=== PATIENT | male | born 1960 | race American Indian/Alaskan Native ===

== ENCOUNTER 2017-09-24 11:13 | Emergency (ER) | payer BC, OTHER ==
[2017-09-24 11:53] LABS: Basophils # (Auto) 0.1 K/mm3 (0.0-0.1); Basophils % (Auto) 0.7 % (0.0-1.8); Eosinophils # (Auto) 0.1 K/mm3 (0.0-0.4); Eosinophils % (Auto) 1.1 % (0.0-4.3); Hematocrit 34.4 % (35.5-45.6); Hemoglobin 11.4 gm/dl (11.8-15.2); Lymphocytes # (Auto) 2.8 K/mm3 (1.2-5.4); Lymphocytes % (Auto) 31.6 % (13.4-35.0); Mean Corpuscular HGB Conc 33 % (32-34); Mean Corpuscular Hemoglobin 24 pg (28-32); Mean Corpuscular Volume 71 fl (84-94); Monocytes % (Auto) 11.7 % (0.0-7.3); Platelet Count 347 K/mm3 (140-440); Red Blood Count 4.86 M/mm3 (3.65-5.03); Red Cell Distribution Width 18.6 % (13.2-15.2)
[2017-09-24] MEDS ORDERED: CARDIZEM/D5W 100MG/100ML 100 MG/100 ML BAG IV SCH (12:00)
[2017-09-24 12:03] LABS: INR 1.7 (0.87-1.13)
[2017-09-24 12:04] LABS: Partial Thromboplastin Time 51.9 Sec. (24.2-36.6)
[2017-09-24 12:12] LABS: Alanine Aminotransferase 9 units/L (7-56); Albumin 3.6 g/dL (3.9-5); BUN/Creatinine Ratio 28; Blood Urea Nitrogen 17 mg/dL (9-20); Calcium 8.6 mg/dL (8.4-10.2); Hemolysis Index 8
[2017-09-24] MEDS ORDERED: CARDIZEM PO ONE ×2 (12:19→13:00)
[2017-09-24 13:26] VITALS: BP 112/87
[2017-09-24 13:27] LABS: Bacteria,Urine 1+ /HPF (Negative); Bilirubin,Urine NEG (Negative); Blood,Urine NEG (Negative); Color,Urine Yellow (Yellow); Mucus,Urine FEW /HPF; Protein,Urine <15 mg/dL mg/dL (Negative)
--- NOTE | 2017-09-24 14:06 | Emergency Department Report ---
ED General Adult HPI - General Chief complaint: Arrhythmia/Palpitations Stated complaint: AFIB Time Seen by Provider: 09/24/17 11:40 Source: patient, RN notes reviewed, old records reviewed Mode of arrival: Ambulatory Limitations: No Limitations - History of Present Illness Initial comments: This is a 56-year-old male who is previously known to this provider. Past medical history includes obesity, paroxysmal atrial fibrillation, currently on systemic anticoagulation, hypothyroidism, thyroiditis, currently managed on propylthiouracil. Primary care Dr.: Dr. Elizabeth Cardiology: [facility] cardiology Patient is sent to the ER for evaluation of A. fib with RVR. He was at his primary care doctor's office for routine follow-up and was found to be incidentally in A. fib with RVR. He endorses compliance with his medications, denies shortness of breath, cough, fever, urinary symptoms. Patient also denies drug use. He had some chest discomfort with the A. fib with RVR. His tachycardia was improved with 50 mg of IV diltiazem. He is asymptomatic now at this time and has no complaints. -: Sudden Location: chest Consistency: colicky Improves with: medication Worsens with: none Associated Symptoms: chest pain. denies: confusion, cough, diaphoresis, fever/ chills, headaches, loss of appetite, malaise, nausea/vomiting, rash, seizure, shortness of breath, syncope, weakness - Related Data Home Medications Medication Instructions Recorded Confirmed Last Taken Albuterol Sulfate [Ventolin HFA] 2 puff IH QID PRN 09/24/17 09/24/17 Unknown Ferrous Fumarate [Hemocyte] 324 mg PO BID 09/24/17 09/24/17 Unknown Furosemide [Lasix TAB] 40 mg PO BID 09/24/17 09/24/17 Unknown Lisinopril [Prinivil] 5 mg PO DAILY 09/24/17 09/24/17 Unknown Methimazole [Tapazole] 10 mg PO DAILY 09/24/17 09/24/17 Unknown Metoprolol [Lopressor TAB] 100 mg PO DAILY 09/24/17 09/24/17 Unknown Potassium Chloride 20 meq PO QDAY 09/24/17 09/24/17 Unknown Rivaroxaban [Xarelto] 20 mg PO QPM 09/24/17 09/24/17 Unknown Spironolactone [Aldactone] 25 mg PO DAILY 09/24/17 09/24/17 Unknown Temazepam 30 mg PO HS PRN 09/24/17 09/24/17 Unknown Allergies Allergy/AdvReac Type Severity Reaction Status Date / Time No Known Allergies Allergy Verified 09/11/13 10:09 ED Review of Systems ROS: Stated complaint: AFIB Other details as noted in HPI Comment: All other systems reviewed and negative ED Past Medical Hx - Past Medical History Previous Medical History?: Yes Hx Hypertension: Yes Hx Congestive Heart Failure: No Hx Diabetes: Yes Hx Asthma: No Hx COPD: No Additional medical history: prostate CA - Surgical History Past Surgical History?: Yes Additional Surgical History: gastric bypass - Social History Smoking Status: Never Smoker Substance Use Type: Prescribed - Medications Home Medications: Home Medications Medication Instructions Recorded Confirmed Last Taken Type Albuterol Sulfate [Ventolin HFA] 2 puff IH QID PRN 09/24/17 09/24/17 Unknown History Ferrous Fumarate [Hemocyte] 324 mg PO BID 09/24/17 09/24/17 Unknown History Furosemide [Lasix TAB] 40 mg PO BID 09/24/17 09/24/17 Unknown History Lisinopril [Prinivil] 5 mg PO DAILY 09/24/17 09/24/17 Unknown History Methimazole [Tapazole] 10 mg PO DAILY 09/24/17 09/24/17 Unknown History Metoprolol [Lopressor TAB] 100 mg PO DAILY 09/24/17 09/24/17 Unknown History Potassium Chloride 20 meq PO QDAY 09/24/17 09/24/17 Unknown History Rivaroxaban [Xarelto] 20 mg PO QPM 09/24/17 09/24/17 Unknown History Spironolactone [Aldactone] 25 mg PO DAILY 09/24/17 09/24/17 Unknown History Temazepam 30 mg PO HS PRN 09/24/17 09/24/17 Unknown History ED Physical Exam - General Limitations: No Limitations General appearance: alert, in no apparent distress, obese - Head Head exam: Present: atraumatic, normocephalic - Eye Eye exam: Present: normal appearance, EOMI. Absent: nystagmus - ENT ENT exam: Present: normal exam, normal orophraynx, mucous membranes moist, normal external ear exam - Neck Neck exam: Present: normal inspection, full ROM - Respiratory Respiratory exam: Present: normal lung sounds bilaterally. Absent: respiratory distress - Cardiovascular Cardiovascular Exam: Present: tachycardia, irregular rhythm, normal heart sounds. Absent: systolic murmur, diastolic murmur, rubs, gallop - GI/Abdominal GI/Abdominal exam: Present: soft, normal bowel sounds. Absent: distended, tenderness, guarding, rebound, rigid, pulsatile mass - Rectal Rectal exam: Present: deferred - Extremities Exam Extremities exam: Present: normal inspection, full ROM, normal capillary refill , other. Absent: tenderness, pedal edema, joint swelling, calf tenderness ( there is no palpable cord. There is a negative Homans sign.) - Back Exam Back exam: Present: normal inspection, full ROM. Absent: tenderness, CVA tenderness (R), paraspinal tenderness, vertebral tenderness - Neurological Exam Neurological exam: Present: alert, oriented X3, CN II-XII intact, normal gait, other (Extraocular movements intact. Tongue midline. No facial droop. Facial sensation intact to light touch in the V1, V2, V3 distribution bilaterally. 5 and 5 strength in 4 extremities.. Sensation is intact to light touch in 4 extremities.). Absent: motor sensory deficit - Psychiatric Psychiatric exam: Present: normal affect, normal mood - Skin Skin exam: Present: warm, dry, intact, normal color. Absent: rash ED Course Vital Signs 09/24/17 09/24/17 09/24/17 11:24 11:31 11:45 Temperature 98.2 F Pulse Rate 148 H 145 H 153 H Respiratory 24 17 19 Rate Blood Pressure 131/86 106/59 O2 Sat by Pulse 96 97 Oximetry 09/24/17 09/24/17 12:01 13:26 Temperature Pulse Rate 152 H 87 Respiratory 16 Rate Blood Pressure 109/49 112/87 O2 Sat by Pulse 95 Oximetry - Reevaluation(s) Reevaluation #1: 09/24/17 14:30 patient now back in the 130s. His rate varies from 90 to 1:30. He is hemodynamically stable. Additional IV diltiazem is ordered. Reevaluation #2: 09/24/17 15:02 Rate is currently in the 70s. Patient in no distress. He has no complaints. Additional 50 mg of diltiazem has been infused. He wants to go. He will be discharged. Return precautions reviewed. ED Medical Decision Making - Lab Data Result diagrams: 09/24/17 11:40 09/24/17 11:40 Vital Signs 09/24/17 09/24/17 09/24/17 11:24 11:31 11:45 Temperature 98.2 F Pulse Rate 148 H 145 H 153 H Respiratory 24 17 19 Rate Blood Pressure 131/86 106/59 O2 Sat by Pulse 96 97 Oximetry 09/24/17 09/24/17 12:01 13:26 Temperature Pulse Rate 152 H 87 Respiratory 16 Rate Blood Pressure 109/49 112/87 O2 Sat by Pulse 95 Oximetry Lab Results 09/24/17 09/24/17 09/24/17 Range/Units 11:40 11:40 11:40 WBC 8.8 (4.5-11.0) K/mm3 RBC 4.86 (3.65-5.03) M/mm3 Hgb 11.4 L (11.8-15.2) gm/dl Hct 34.4 L (35.5-45.6) % MCV 71 L (84-94) fl MCH 24 L (28-32) pg MCHC 33 (32-34) % RDW 18.6 H (13.2-15.2) % Plt Count 347 (140-440) K/mm3 Lymph % (Auto) 31.6 (13.4-35.0) % Addison % (Auto) 11.7 H (0.0-7.3) % Eos % (Auto) 1.1 (0.0-4.3) % Baso % (Auto) 0.7 (0.0-1.8) % Lymph # 2.8 (1.2-5.4) K/mm3 Addison # 1.0 H (0.0-0.8) K/mm3 Eos # 0.1 (0.0-0.4) K/mm3 Baso # 0.1 (0.0-0.1) K/mm3 Seg Neutrophils % 54.9 (40.0-70.0) % Seg Neutrophils # 4.8 (1.8-7.7) K/mm3 PT 21.0 H (12.2-14.9) Sec. INR 1.70 H (0.87-1.13) APTT 51.9 H (24.2-36.6) Sec. Sodium 141 (137-145) mmol/L Potassium 3.7 (3.6-5.0) mmol/L Chloride 102.3 (98-107) mmol/L Carbon Dioxide 27 (22-30) mmol/L Anion Gap 15 mmol/L BUN 17 (9-20) mg/dL Creatinine 0.6 L (0.8-1.5) mg/dL Estimated GFR > 60 ml/min BUN/Creatinine Ratio 28 % Glucose 128 H (75-100) mg/dL Calcium 8.6 (8.4-10.2) mg/dL Total Bilirubin 0.30 (0.1-1.2) mg/dL AST 13 (5-40) units/L ALT 9 (7-56) units/L Alkaline Phosphatase 77 (35-129) units/L Troponin T < 0.010 (0.00-0.029) ng/mL Total Protein 7.6 (6.3-8.2) g/dL Albumin 3.6 L (3.9-5) g/dL Albumin/Globulin Ratio 0.9 % TSH (0.270-4.200) mlU/mL Free T4 (0.76-1.46) ng/dL Urine Color (Yellow) Urine Turbidity (Clear) Urine pH (5.0-7.0) Ur Specific [place] (1.003-1.030) Urine Protein (Negative) mg/dL Urine Glucose (UA) (Negative) mg/dL Urine Ketones (Negative) mg/dL Urine Blood (Negative) Urine Nitrite (Negative) Urine Bilirubin (Negative) Urine Urobilinogen (<2.0) mg/dL Ur Leukocyte Esterase (Negative) Urine WBC (Auto) (0.0-6.0) /HPF Urine RBC (Auto) (0.0-6.0) /HPF U Epithel Cells (Auto) (0-13.0) /HPF Urine Bacteria (Auto) (Negative) /HPF Urine Mucus /HPF 09/24/17 09/24/17 09/24/17 Range/Units 11:47 11:47 13:05 WBC (4.5-11.0) K/mm3 RBC (3.65-5.03) M/mm3 Hgb (11.8-15.2) gm/dl Hct (35.5-45.6) % MCV (84-94) fl MCH (28-32) pg MCHC (32-34) % RDW (13.2-15.2) % Plt Count (140-440) K/mm3 Lymph % (Auto) (13.4-35.0) % Addison % (Auto) (0.0-7.3) % Eos % (Auto) (0.0-4.3) % Baso % (Auto) (0.0-1.8) % Lymph # (1.2-5.4) K/mm3 Addison # (0.0-0.8) K/mm3 Eos # (0.0-0.4) K/mm3 Baso # (0.0-0.1) K/mm3 Seg Neutrophils % (40.0-70.0) % Seg Neutrophils # (1.8-7.7) K/mm3 PT (12.2-14.9) Sec. INR (0.87-1.13) APTT (24.2-36.6) Sec. Sodium (137-145) mmol/L Potassium (3.6-5.0) mmol/L Chloride (98-107) mmol/L Carbon Dioxide (22-30) mmol/L Anion Gap mmol/L BUN (9-20) mg/dL Creatinine (0.8-1.5) mg/dL Estimated GFR ml/min BUN/Creatinine Ratio % Glucose (75-100) mg/dL Calcium (8.4-10.2) mg/dL Total Bilirubin (0.1-1.2) mg/dL AST (5-40) units/L ALT (7-56) units/L Alkaline Phosphatase (35-129) units/L Troponin T (0.00-0.029) ng/mL Total Protein (6.3-8.2) g/dL Albumin (3.9-5) g/dL Albumin/Globulin Ratio % TSH 0.096 L (0.270-4.200) mlU/mL Free T4 1.19 (0.76-1.46) ng/dL Urine Color Yellow (Yellow) Urine Turbidity Clear (Clear) Urine pH 5.0 (5.0-7.0) Ur Specific [place] 1.013 (1.003-1.030) Urine Protein <15 mg/dl (Negative) mg/dL Urine Glucose (UA) Neg (Negative) mg/dL Urine Ketones Neg (Negative) mg/dL Urine Blood Neg (Negative) Urine Nitrite Neg (Negative) Urine Bilirubin Neg (Negative) Urine Urobilinogen 2.0 (<2.0) mg/dL Ur Leukocyte Esterase Neg (Negative) Urine WBC (Auto) 1.0 (0.0-6.0) /HPF Urine RBC (Auto) 2.0 (0.0-6.0) /HPF U Epithel Cells (Auto) < 1.0 (0-13.0) /HPF Urine Bacteria (Auto) 1+ (Negative) /HPF Urine Mucus Few /HPF 09/24/17 Range/Units 13:22 WBC (4.5-11.0) K/mm3 RBC (3.65-5.03) M/mm3 Hgb (11.8-15.2) gm/dl Hct (35.5-45.6) % MCV (84-94) fl MCH (28-32) pg MCHC (32-34) % RDW (13.2-15.2) % Plt Count (140-440) K/mm3 Lymph % (Auto) (13.4-35.0) % Addison % (Auto) (0.0-7.3) % Eos % (Auto) (0.0-4.3) % Baso % (Auto) (0.0-1.8) % Lymph # (1.2-5.4) K/mm3 Addison # (0.0-0.8) K/mm3 Eos # (0.0-0.4) K/mm3 Baso # (0.0-0.1) K/mm3 Seg Neutrophils % (40.0-70.0) % Seg Neutrophils # (1.8-7.7) K/mm3 PT (12.2-14.9) Sec. INR (0.87-1.13) APTT (24.2-36.6) Sec. Sodium (137-145) mmol/L Potassium (3.6-5.0) mmol/L Chloride (98-107) mmol/L Carbon Dioxide (22-30) mmol/L Anion Gap mmol/L BUN (9-20) mg/dL Creatinine (0.8-1.5) mg/dL Estimated GFR ml/min BUN/Creatinine Ratio % Glucose (75-100) mg/dL Calcium (8.4-10.2) mg/dL Total Bilirubin (0.1-1.2) mg/dL AST (5-40) units/L ALT (7-56) units/L Alkaline Phosphatase (35-129) units/L Troponin T < 0.010 (0.00-0.029) ng/mL Total Protein (6.3-8.2) g/dL Albumin (3.9-5) g/dL Albumin/Globulin Ratio % TSH (0.270-4.200) mlU/mL Free T4 (0.76-1.46) ng/dL Urine Color (Yellow) Urine Turbidity (Clear) Urine pH (5.0-7.0) Ur Specific [place] (1.003-1.030) Urine Protein (Negative) mg/dL Urine Glucose (UA) (Negative) mg/dL Urine Ketones (Negative) mg/dL Urine Blood (Negative) Urine Nitrite (Negative) Urine Bilirubin (Negative) Urine Urobilinogen (<2.0) mg/dL Ur Leukocyte Esterase (Negative) Urine WBC (Auto) (0.0-6.0) /HPF Urine RBC (Auto) (0.0-6.0) /HPF U Epithel Cells (Auto) (0-13.0) /HPF Urine Bacteria (Auto) (Negative) /HPF Urine Mucus /HPF - EKG Data -: EKG Interpreted by Me - EKG Data 09/24/17 14:07 EKG #1 demonstrates A. fib with RVR. Not consistent with a STEMI. EKG #2 demonstrates A. fib, 67 bpm, left axis deviation, right bundle branch block, left ventricular hypertrophy, it is not morphologically consistent with a STEMI - Radiology Data Radiology results: image reviewed interpreted by me: X-ray of the chest, interpreted by radiology: Portable inspiratory effort, rotated, no acute disease. - Medical Decision Making Differential diagnosis, including but not limited to: Paroxysmal A. fib, electrolyte derangement, urinary tract infection Assessment and plan: 56-year-old male, now with resolved A. fib with RVR. He is still currently in A. fib. He has no pulmonary embolus or DVT risk factors, he is low risk by well's criteria. He is compliant with his systemic anticoagulation. EKG remained unchanged after IV and oral diltiazem. He was hemodynamically stable at this time, with no complaints. I have contacted his primary bench boring machine operator, Dr. Prabhakar at [facility] cardiology, she agrees to follow the patient up closely as an outpatient. She did not specifically recommend any adjustment to his medications. He is clinically sober at this time, low risk by LUCILA score, low risk by heart score, unlikely to have major adverse cardiac event. Critical care attestation.: If time is entered above; I have spent that time in minutes in the direct care of this critically ill patient, excluding procedure time. ED Disposition Clinical Impression: Atrial fibrillation with rapid ventricular response Disposition: DC-01 TO HOME OR SELFCARE Is pt being admited?: No Does the pt Need Aspirin: No Condition: Stable Instructions: Palpitations (ED) Additional Instructions: Continue current outpatient medications. Avoid consumption of caffeine, stimulating drinks. Follow up with you bench boring machine operator within the next 7-10 days. Address: [address] [place] [id number] Hours: Open now Add full hours Return to the ER right away with new pain, worsened pain, migration of pain, fevers, chills, lethargy, irritability, projectile vomiting, change in mental status, confusion, inability to tolerate liquid feeds. Referrals: PRIMARY CARE, [Primary Care Provider] - 3-5 Days
--- NOTE | 2017-09-24 16:25 | XRay Report ---
FINAL REPORT EXAM: XR CHEST 1V AP HISTORY: shortness of breath, tachycardia, chest pain COMPARISON: None. TECHNIQUE: Single frontal view of the chest FINDINGS: The cardiomediastinal silhouette is normal in appearance. Low lung volumes. The lungs are clear without focal consolidation. There is no pleural effusion or pneumothorax. There is no acute soft tissue or osseous abnormality. IMPRESSION: No acute cardiopulmonary disease.
== END 2017-09-24 16:10 | disposition home or self-care (01) ==
LOC: ED 11:13
DX: I48.91 Unspecified atrial fibrillation (principal); I10 Essential (primary) hypertension; E11.9 Type 2 diabetes mellitus without complications
CPT/HCPCS: 36415; 71045; 80053; 81001; 84439; 84443; 84484; 85025; 85610; 85730; 93005; 93010; 99284

== ENCOUNTER 2018-08-29 06:08 | Day surgery (SDC) | payer OTHER ==
[2018-08-29] MEDS ORDERED: NACL 0.9% 1000 ML 1,000 ML IV SCH (07:00)
[2018-08-29] MEDS ORDERED: WATER FOR IRRIG STERILE ONE (07:24)
[2018-08-29] MEDS ORDERED: WATER FOR IRRIG STERILE IR ONE (07:24)
[2018-08-29] MEDS ORDERED: DIPRIVAN 10 MG/ML IV ONE ×3 (07:33)
[2018-08-29] MEDS ORDERED: XYLOCAINE 2% INFILTRATI ONE (07:33)
--- NOTE | 2018-08-29 08:13 | Operative Report ---
Operative Report Operative Report: DATE OF SERVICE: 08/29/2018 SURGEON: Grzegorz Bhandari MD COLONOSCOPY REPORT PREOPERATIVE AND POSTOPERATIVE DIAGNOSIS: Personal history colon polyps DESCRIPTION OF PROCEDURE: The colonoscope was passed to the cecum as identified by the ileocecal valve and appendiceal orifice. Scope was carefully withdrawn. Retroflexion was performed in the rectum. At the end of procedure, the scope was cleaned using normal technique. Vital signs monitored continuously throughout. SEDATION: Provided by [facility]. Quality of the prep was good COMPLICATIONS: None. ESTIMATED BLOOD LOSS: None FINDINGS: * Moderate diverticulosis of the sigmoid colon * Internal bleeding hemorrhoids * Enlarged anal papilla * External non thrombosed hemorrhoid * Small anal fissure * Remainder of the exam was normal RECOMMENDATIONS: * Repeat colonoscopy for surveillance in 5 years * Patient may either return to my clinic for treatment of the internal hemorrhoids, or if he desires definitive treatment of the external hemorrhoids he may see surgery
[2018-08-29 08:30] VITALS: BP 134/79
== END 2018-08-29 06:09 | disposition home or self-care (01) ==
LOC: GIO 06:08
PROVIDERS: ATTEND Student in an Organized Health Care Education/Training Program
DX: Z12.11 Encounter for screening for malignant neoplasm of colon (principal); K57.30 Diverticulosis of large intestine without perforation or abscess without bleeding; K64.8 Other hemorrhoids; K60.2 Anal fissure, unspecified; K62.89 Other specified diseases of anus and rectum; I48.91 Unspecified atrial fibrillation; E66.01 Morbid (severe) obesity due to excess calories; E05.90 Thyrotoxicosis, unspecified without thyrotoxic crisis or storm; G47.33 Obstructive sleep apnea (adult) (pediatric); E03.9 Hypothyroidism, unspecified; E11.39 Type 2 diabetes mellitus with other diabetic ophthalmic complication; H40.9 Unspecified glaucoma; I11.0 Hypertensive heart disease with heart failure; I50.9 Heart failure, unspecified; J45.909 Unspecified asthma, uncomplicated; Z68.41 Body mass index [BMI] 40.0-44.9, adult; Z86.010 Personal history of colon polyps; Z79.899 Other long term (current) drug therapy; Z68.42 Body mass index [BMI] 45.0-49.9, adult; Z78.9 Other specified health status; Z85.46 Personal history of malignant neoplasm of prostate; Z83.3 Family history of diabetes mellitus; Z98.890 Other specified postprocedural states; Z82.49 Family history of ischemic heart disease and other diseases of the circulatory system
CPT/HCPCS: 45378; 82962; J2704; J7030

== ENCOUNTER 2018-09-03 20:54 | Emergency (ER) | payer OTHER ==
--- NOTE | 2018-09-03 21:14 | Emergency Department Report ---
Blank Doc - Documentation Documentation: This is a 57-year-old male that presents lower back and neck pain s/p fall from a chair. Patient also stated has chest pain with SOB. History of cardiac. This initial assessment/diagnostic orders/clinical plan/treatment(s) is/are subject to change based on patient's health status, clinical progression and re- assessment by fellow clinical providers in the ED. Further treatment and workup at subsequent clinical providers discretion. Patient/guardians urged not to elope from the ED as their condition may be serious if not clinically assessed and managed. Initial orders include: 1- Patient sent to MAIN ED for further evaluation and treatment 2- EKG 3- CXR 4- labs
[2018-09-03 22:10] LABS: Hematocrit 28.8 % (35.5-45.6); Hemoglobin 9.6 gm/dl (11.8-15.2); Mean Corpuscular HGB Conc 33 % (32-34); Mean Corpuscular Volume 81 fl (84-94); Red Blood Count 3.57 M/mm3 (3.65-5.03)
[2018-09-03 22:11] LABS: Eosinophils % (Auto) 1.5 % (0.0-4.3); Monocytes % (Auto) 10.1 % (0.0-7.3); Platelet Count 352 K/mm3 (140-440); Red Cell Distribution Width 17.3 % (13.2-15.2)
[2018-09-03 22:12] LABS: Eosinophils # (Auto) 0.1 K/mm3 (0.0-0.4); Lymphocytes # (Auto) 2.7 K/mm3 (1.2-5.4); Monocytes # (Auto) 0.9 K/mm3 (0.0-0.8)
[2018-09-03 22:16] LABS: BUN/Creatinine Ratio 11; Blood Urea Nitrogen 20 mg/dL (9-20); Calcium 9.3 mg/dL (8.4-10.2); Hemolysis Index 3
[2018-09-03 22:21] LABS: INR 1.61 (0.87-1.13)
[2018-09-03 22:22] LABS: Partial Thromboplastin Time 39.5 Sec. (24.2-36.6)
--- NOTE | 2018-09-03 23:22 | XRay Report ---
PROCEDURE: XR SPINE CERVICAL 2-3V TECHNIQUE: 3 views obtained of the cervical spine HISTORY: pain s/p fall COMPARISONS: No priors FINDINGS: There is no radiographic evidence of acute cervical spine fracture or malalignment. Degenerative changes of the cervical spine with large anterior osteophytes. No prevertebral soft tissue swelling. Scoliotic curvature of the cervical spine with convexity towards the left. Open-mouth view of the odontoid within normal limits. Evaluation is limited based on the 3 views obtained. IMPRESSION: . No radiographic evidence of acute cervical spine fracture or malalignment. Degenerative changes of the cervical spine. Evaluation limited based on the 3 views obtained. This document is electronically signed by Mitchell Elaine MD., September 03 2018 11:20:53 PM ET
--- NOTE | 2018-09-03 23:23 | XRay Report ---
PROCEDURE: XR SPINE LUMBOSACRAL 2-3V TECHNIQUE: Lumbar spine 3 views HISTORY: pain s/p fall COMPARISONS: FINDINGS: Vertebral bodies are normal in height. There is grade 1 anterolisthesis of L4 relative to L5 with mar ked disc space narrowing. Appearance suggestive of bilateral spondylolysis. There is disc space narro wing at L5-S1 with vacuum disc. There is marked facet joint hypertrophy at L4-L5 and L5-S1 IMPRESSION: Grade 1 spondylolisthesis with spondylolysis at L4-L5 Marked degenerative disc disease L4-L5 and L5-S1 Facet joint hypertrophy lower lumbar spine This document is electronically signed by Roscoe Meneses MD., September 03 2018 11:21:52 PM ET
--- NOTE | 2018-09-03 23:44 | XRay Report ---
PROCEDURE: XR CHEST ROUTINE 2V TECHNIQUE: Two-view chest HISTORY: Chest Pain COMPARISONS: Comparison is September 24, 2017 FINDINGS: Cardiac contours are unremarkable. No focal pulmonary infiltrate identified. No pleural fluid collect ion seen. Pulmonary vasculature is unremarkable. IMPRESSION: No acute findings in the chest. This document is electronically signed by Roscoe Meneses MD., September 03 2018 11:42:37 PM ET
[2018-09-04 00:02] VITALS: BP 109/65
--- NOTE | 2018-09-04 00:11 | Emergency Department Report ---
ED Fall HPI - General Chief Complaint: Fall Stated Complaint: ATRIAL BACK HIP NECK LEG PAIN Time Seen by Provider: 09/03/18 21:12 Source: patient Mode of arrival: Ambulatory - History of Present Illness Initial Comments: Mr. Cheatham is a very pleasant 57-year-old male with history of thyroid disease, hypertension, diabetes, atrial fibrillation on anticoagulation Xarelto, asthma who presents with upper back pain neck pain and lower back pain due to fall. Earlier this evening, he fell at a local [employer] store. The chair broke. Consequently he fell onto his bottom and back side. His friends assisted him up. He went to a nearby urgent care which did not accept his health insurance. His health insurance referred him to our emergency department. He drove to our ED via his personal vehicle. He has mild upper back pain hip pain and lower back pain. Over the last several days he's had intermittent nondescript chest pain with shortness of breath lasting seconds at a time. Not associated with exertion or eating. No history of heart disease. PCP Dr. 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 Fall Witnessed: yes, by bystander Place Fall Occurred: other ([employer] on [address]) Loss of Consciousness: none Prolonged Down Time?: no Symptoms Prior to Fall: none Severity: mild Context: other (chair broke) - Related Data Home Medications Medication Instructions Recorded Confirmed Last Taken Albuterol Sulfate [Ventolin HFA] 2 puff IH QID PRN 09/24/17 08/28/18 Unknown Ferrous Fumarate (Nf) [Hemocyte] 324 mg PO BID 09/24/17 08/29/18 08/22/18 Furosemide [Lasix TAB] 40 mg PO BID 09/24/17 08/28/18 Unknown Lisinopril [Prinivil] 20 mg PO DAILY 09/24/17 08/28/18 08/28/18 Methimazole [Tapazole] 10 mg PO DAILY 09/24/17 08/28/18 Unknown Metoprolol [Lopressor TAB] 100 mg PO DAILY 09/24/17 08/28/18 08/28/18 Potassium Chloride 20 meq PO QDAY 09/24/17 08/28/18 08/28/18 Rivaroxaban [Xarelto] 20 mg PO QPM 09/24/17 08/29/18 08/26/18 Spironolactone [Aldactone] 25 mg PO DAILY 09/24/17 08/28/18 08/28/18 Atorvastatin 20 mg PO DAILY 08/28/18 08/28/18 08/28/18 Latanoprost 0.005% Eye Drop 1 drop OU DAILY 08/28/18 08/28/18 08/28/18 Viagra 100 mg PO PRN PRN 08/28/18 08/28/18 Unknown Victoza 2-Brandon 1.2 mg SUB-Q DAILY 08/28/18 08/28/18 08/28/18 Vitamin D2 1 tab PO DAILY 08/28/18 08/29/18 Unknown metFORMIN 1,000 mg PO BID 08/28/18 08/28/18 08/28/18 Previous Rx's Medication Instructions Recorded Last Taken Type Cyclobenzaprine [Flexeril] 10 mg PO TID PRN #20 tablet 09/04/18 Unknown Rx Allergies Allergy/AdvReac Type Severity Reaction Status Date / Time No Known Allergies Allergy Verified 09/11/13 10:09 ED Review of Systems ROS: Stated complaint: ATRIAL BACK HIP NECK LEG PAIN Other details as noted in HPI Comment: All other systems reviewed and negative Constitutional: denies: fever, malaise Cardiovascular: chest pain, dyspnea on exertion ED Past Medical Hx - Past Medical History Previous Medical History?: Yes Hx Hypertension: Yes Hx Congestive Heart Failure: Yes Hx Diabetes: Yes Hx Asthma: Yes Hx COPD: No Additional medical history: prostate CA, AFIB - Surgical History Additional Surgical History: gastric bypass, Colonoscopy - Social History Smoking Status: Unknown if ever smoked Substance Use Type: None - Medications Home Medications: Home Medications Medication Instructions Recorded Confirmed Last Taken Type Albuterol Sulfate [Ventolin HFA] 2 puff IH QID PRN 09/24/17 08/28/18 Unknown History Ferrous Fumarate (Nf) [Hemocyte] 324 mg PO BID 09/24/17 08/29/18 08/22/18 History Furosemide [Lasix TAB] 40 mg PO BID 09/24/17 08/28/18 Unknown History Lisinopril [Prinivil] 20 mg PO DAILY 09/24/17 08/28/18 08/28/18 History Methimazole [Tapazole] 10 mg PO DAILY 09/24/17 08/28/18 Unknown History Metoprolol [Lopressor TAB] 100 mg PO DAILY 09/24/17 08/28/18 08/28/18 History Potassium Chloride 20 meq PO QDAY 09/24/17 08/28/18 08/28/18 History Rivaroxaban [Xarelto] 20 mg PO QPM 09/24/17 08/29/18 08/26/18 History Spironolactone [Aldactone] 25 mg PO DAILY 09/24/17 08/28/18 08/28/18 History Atorvastatin 20 mg PO DAILY 08/28/18 08/28/18 08/28/18 History Latanoprost 0.005% Eye Drop 1 drop OU DAILY 08/28/18 08/28/18 08/28/18 History Viagra 100 mg PO PRN PRN 08/28/18 08/28/18 Unknown History Victoza 2-Brandon 1.2 mg SUB-Q DAILY 08/28/18 08/28/18 08/28/18 History Vitamin D2 1 tab PO DAILY 08/28/18 08/29/18 Unknown History metFORMIN 1,000 mg PO BID 08/28/18 08/28/18 08/28/18 History Cyclobenzaprine [Flexeril] 10 mg PO TID PRN #20 tablet 09/04/18 Unknown Rx ED Physical Exam - General Limitations: No Limitations General appearance: alert, in no apparent distress - Head Head exam: Present: atraumatic, normocephalic - Eye Eye exam: Present: normal appearance - ENT ENT exam: Present: mucous membranes moist - Neck Neck exam: Present: normal inspection, full ROM - Respiratory Respiratory exam: Present: normal lung sounds bilaterally. Absent: respiratory distress, wheezes, rales, rhonchi - Cardiovascular Cardiovascular Exam: Present: regular rate, normal rhythm, normal heart sounds. Absent: systolic murmur, diastolic murmur, rubs, gallop - GI/Abdominal GI/Abdominal exam: Present: soft, normal bowel sounds. Absent: distended, tenderness, guarding, rebound - Rectal Rectal exam: Present: deferred - Extremities Exam Extremities exam: Present: normal inspection - Back Exam Back exam: Present: normal inspection - Neurological Exam Neurological exam: Present: alert, oriented X3 - Psychiatric Psychiatric exam: Present: normal affect, normal mood - Skin Skin exam: Present: warm, dry, intact, normal color. Absent: rash ED Course Vital Signs 09/03/18 09/04/18 21:13 00:00 Temperature 98 F 99 F Pulse Rate 82 73 Respiratory 20 18 Rate Blood Pressure 91/58 Blood Pressure 109/65 [Right] O2 Sat by Pulse 98 100 Oximetry ED Medical Decision Making - Lab Data Result diagrams: 09/03/18 21:52 09/03/18 21:52 Laboratory Tests 09/03/18 09/03/18 09/03/18 21:52 21:52 21:52 WBC 8.6 RBC 3.57 L Hgb 9.6 L Hct 28.8 L MCV 81 L MCH 27 L MCHC 33 RDW 17.3 H Plt Count 352 Lymph % (Auto) 31.0 [place] % (Auto) 10.1 H Eos % (Auto) 1.5 Baso % (Auto) 0.0 Lymph # 2.7 [place] # 0.9 H Eos # 0.1 Baso # 0.0 Seg Neutrophils % 57.4 Seg Neutrophils # 4.9 PT 20.2 H INR 1.61 H APTT 39.5 H Sodium 141 Potassium 4.4 Chloride 105.7 Carbon Dioxide 23 Anion Gap 17 BUN 20 Creatinine 1.8 H Estimated GFR 47 BUN/Creatinine Ratio 11 Glucose 98 Calcium 9.3 Troponin T < 0.010 - Radiology Data Radiology results: report reviewed Radiology reports reveal marked degenerative disc disease in the lumbar spine, no acute fracture, Cervical spine radiographs no acute fracture positive degenerative changes Chest radiograph without acute changes - Medical Decision Making 1. fall without severe traumatic injury, neurologically intact, referred to orthopedic surgeon, rx: flexeril 2. elevated creatinine 1.8 on diuretic therapy. I provided copy of lab work to patient. He will f/u with PCP Dr. Penaloza Critical care attestation.: If time is entered above; I have spent that time in minutes in the direct care of this critically ill patient, excluding procedure time. ED Disposition Clinical Impression: Fall, Back contusion, Contusion, hip Disposition: DC-01 TO HOME OR SELFCARE Is pt being admited?: No Does the pt Need Aspirin: No Condition: Stable Instructions: Contusion in Adults (ED) Prescriptions: Cyclobenzaprine [Flexeril] 10 mg PO TID PRN #20 tablet PRN Reason: Muscle Spasm Referrals: RICK PENALOZA MD [Primary Care Provider] - 3-5 Days TOBY RICO MD [Staff Physician] - 3-5 Days
== END 2018-09-04 00:33 | disposition home or self-care (01) ==
LOC: ED 20:54
DX: S20.229A Contusion of unspecified back wall of thorax, initial encounter (principal); S70.00XA Contusion of unspecified hip, initial encounter; I11.0 Hypertensive heart disease with heart failure; I50.9 Heart failure, unspecified; E11.9 Type 2 diabetes mellitus without complications; J45.909 Unspecified asthma, uncomplicated; I48.91 Unspecified atrial fibrillation; Z79.899 Other long term (current) drug therapy; W18.30XA Fall on same level, unspecified, initial encounter; Y93.89 Activity, other specified; Y92.512 Supermarket, store or market as the place of occurrence of the external cause; Y99.8 Other external cause status
CPT/HCPCS: 36415; 71046; 72040; 72100; 80048; 84484; 85025; 85610; 85730; 93005; 93010

== ENCOUNTER 2019-04-07 21:51 | Inpatient (IN) | payer OTHER ==
[2019-04-07] MEDS ORDERED: dilTIAZem 25 MG/5 ML INJ IV ONE ×2 (22:57→23:27)
[2019-04-07 23:08] LABS: Basophils % (Auto) 0.5 % (0.0-1.8); Eosinophils # (Auto) 0.1 K/mm3 (0.0-0.4); Eosinophils % (Auto) 0.8 % (0.0-4.3); Hematocrit 29.6 % (35.5-45.6); Hemoglobin 9.7 gm/dl (11.8-15.2); Lymphocytes # (Auto) 2.2 K/mm3 (1.2-5.4); Lymphocytes % (Auto) 26.8 % (13.4-35.0); Mean Corpuscular HGB Conc 33 % (32-34); Monocytes % (Auto) 11.6 % (0.0-7.3); Platelet Count 332 K/mm3 (140-440); Red Blood Count 4.36 M/mm3 (3.65-5.03); Red Cell Distribution Width 18.8 % (13.2-15.2)
--- NOTE | 2019-04-07 23:09 | XRay Report ---
CHEST 1 VIEW INDICATION: CP. COMPARISON: 09/24/2017. FINDINGS: Support devices: None. Heart: Within normal limits. Lungs/Pleura: No acute air space or interstitial disease. Additional findings: None. IMPRESSION: No acute abnormality. Signer Name: Rafael Shen MD Signed: 04/07/2019 11:04 PM Workstation Name: [id number]
[2019-04-07 23:18] LABS: INR 1.86 (0.87-1.13)
[2019-04-07 23:19] LABS: Partial Thromboplastin Time 41.7 Sec. (24.2-36.6)
[2019-04-07 23:26] LABS: Mean Corpuscular Volume 68 fl (84-94)
[2019-04-07 23:33] LABS: BUN/Creatinine Ratio 24; Blood Urea Nitrogen 26 mg/dL (9-20); Calcium 8.8 mg/dL (8.4-10.2); Hemolysis Index 3
[2019-04-07] MEDS ORDERED: dilTIAZem/D5W 100 MG/100 ML BAG IV SCH (23:45)
[2019-04-08] MEDS ORDERED: ONDANSETRON 4 MG/2 ML INJ IV PRN (00:33)
[2019-04-08] MEDS ORDERED: ACETAMINOPHEN 325 MG TAB PO PRN (00:33)
[2019-04-08] MEDS ORDERED: DEXTROSE 50% IN WATER (25GM) 50 ML SYRINGE IV PRN (00:37)
--- NOTE | 2019-04-08 00:37 | Emergency Department Report ---
ED Chest Pain HPI - General Chief Complaint: Arrhythmia/Palpitations Stated Complaint: ATRIAL FIB Time Seen by Provider: 04/07/19 22:24 Source: patient Mode of arrival: Ambulatory Limitations: No Limitations - History of Present Illness Initial Comments: 58-year-old [place] male presents to the emergency department with complaint of some shortness of breath, palpitations and chest tightness that worsens with any exertion that has been going on since yesterday. He has a past medical history of asthma, CHF, diabetes, hypertension, paroxysmal A. fib, previous prostate cancer and hyperthyroidism. Patient says his primary care physician recently stopped his methimazole. He sees a pipe assembly worker through [facility]. He has not taken anything for her symptoms prior to presentation. The patient is anticoagulated on Xarelto. No recent travel or sick contacts at home. Severity scale (0 -10): 0 - Related Data Home Medications Medication Instructions Recorded Confirmed Last Taken Lisinopril [Prinivil] 20 mg PO DAILY 09/24/17 04/08/19 08/28/18 Rivaroxaban [Xarelto] 20 mg PO QPM 09/24/17 04/08/19 08/26/18 Spironolactone [Aldactone] 25 mg PO DAILY 09/24/17 04/08/19 08/28/18 Atorvastatin 20 mg PO DAILY 08/28/18 04/08/19 08/28/18 Victoza 2-Brandon 1.2 mg SUB-Q DAILY 08/28/18 04/08/19 08/28/18 Cholecalciferol Vit D3 [Vitamin D3 1,000 unit PO QDAY 04/08/19 04/08/19 Unknown 1,000 UNIT TAB] Furosemide [Lasix TAB] 40 mg PO QDAY 04/08/19 04/08/19 Unknown Metformin HCl [metFORMIN] 1,000 mg PO QDAY 04/08/19 04/08/19 Unknown Methimazole [Tapazole] 10 mg PO QDAY 04/08/19 04/08/19 Unknown Metoprolol [Lopressor TAB] 50 mg PO QDAY 04/08/19 04/08/19 Unknown Potassium Chloride 10 meq PO QDAY 04/08/19 04/08/19 Unknown Allergies Allergy/AdvReac Type Severity Reaction Status Date / Time No Known Allergies Allergy Verified 09/11/13 10:09 Heart Score - HEART Score History: Slightly suspicious EKG: Non-specific Age: 45-65 Risk factors: 1-2 risk factors Troponin: < normal limit HEART Score: 3 - Critical Actions Critical Actions: 0-3 pts:0.9-1.7%risk of adverse cardiac event.Candidate for discharge ED Review of Systems ROS: Stated complaint: ATRIAL FIB Other details as noted in HPI Comment: All other systems reviewed and negative Constitutional: denies: chills, fever Eyes: denies: eye pain, vision change ENT: denies: ear pain, throat pain Respiratory: shortness of breath, SOB with exertion. denies: cough Cardiovascular: chest pain, palpitations. denies: edema Gastrointestinal: denies: abdominal pain, vomiting Genitourinary: denies: dysuria, discharge Musculoskeletal: denies: back pain, arthralgia Skin: denies: rash, lesions Neurological: denies: headache, weakness ED Past Medical Hx - Past Medical History Previous Medical History?: Yes Hx Hypertension: Yes Hx Congestive Heart Failure: Yes Hx Diabetes: Yes Hx Asthma: Yes Hx COPD: No Additional medical history: prostate CA, AFIB - Surgical History Additional Surgical History: gastric bypass, Colonoscopy - Social History Smoking Status: Never Smoker Substance Use Type: None - Medications Home Medications: Home Medications Medication Instructions Recorded Confirmed Last Taken Type Lisinopril [Prinivil] 20 mg PO DAILY 09/24/17 04/08/19 08/28/18 History Rivaroxaban [Xarelto] 20 mg PO QPM 09/24/17 04/08/19 08/26/18 History Spironolactone [Aldactone] 25 mg PO DAILY 09/24/17 04/08/19 08/28/18 History Atorvastatin 20 mg PO DAILY 08/28/18 04/08/19 08/28/18 History Victoza 2-Brandon 1.2 mg SUB-Q DAILY 08/28/18 04/08/19 08/28/18 History Cholecalciferol Vit D3 [Vitamin D3 1,000 unit PO QDAY 04/08/19 04/08/19 Unknown History 1,000 UNIT TAB] Furosemide [Lasix TAB] 40 mg PO QDAY 04/08/19 04/08/19 Unknown History Metformin HCl [metFORMIN] 1,000 mg PO QDAY 04/08/19 04/08/19 Unknown History Methimazole [Tapazole] 10 mg PO QDAY 04/08/19 04/08/19 Unknown History Metoprolol [Lopressor TAB] 50 mg PO QDAY 04/08/19 04/08/19 Unknown History Potassium Chloride 10 meq PO QDAY 04/08/19 04/08/19 Unknown History ED Physical Exam - General Limitations: No Limitations - Other Other exam information: GENERAL: The patient is well-developed well-nourished. HENT: Normocephalic. Atraumatic. Patient has moist mucous membranes. EYES: Extraocular motions are intact. NECK: Supple. Trachea is midline. CHEST/LUNGS: Clear to auscultation. There is no respiratory distress noted. HEART/CARDIOVASCULAR: Regular rhythm with moderate tachycardia. ABDOMEN: Abdomen is soft, nontender. Patient has normal bowel sounds. There is no abdominal distention. SKIN: Skin is warm and dry. NEURO: The patient is awake, alert, and oriented. The patient is cooperative. The patient has no focal neurologic deficits. Normal speech. MUSCULOSKELETAL: There is no tenderness or deformity. There is no evidence of acute injury. ED Course Vital Signs 04/07/19 04/07/19 04/07/19 21:58 22:30 23:10 Temperature 98.6 F Pulse Rate 62 172 H 152 H Respiratory 18 17 Rate Blood Pressure 113/72 107/75 Blood Pressure 107/75 [Left] O2 Sat by Pulse 97 99 Oximetry 04/07/19 04/07/19 04/07/19 23:16 23:30 23:45 Temperature Pulse Rate 129 H 128 H 135 H Respiratory 22 22 21 Rate Blood Pressure 107/60 107/60 107/65 Blood Pressure [Left] O2 Sat by Pulse 100 100 100 Oximetry 04/07/19 04/07/19 04/08/19 23:51 23:57 00:00 Temperature Pulse Rate 138 H 132 H 112 H Respiratory 19 Rate Blood Pressure 107/65 107/65 107/65 Blood Pressure [Left] O2 Sat by Pulse 99 Oximetry 04/08/19 04/08/19 04/08/19 00:15 00:30 00:45 Temperature Pulse Rate 118 H 128 H 136 H Respiratory 20 18 19 Rate Blood Pressure 98/51 98/51 Blood Pressure 128/64 [Left] O2 Sat by Pulse 99 99 99 Oximetry 04/08/19 04/08/19 04/08/19 01:00 01:16 01:18 Temperature Pulse Rate 150 H 137 H 133 H Respiratory 26 H 17 17 Rate Blood Pressure 103/64 100/70 Blood Pressure 121/69 [Left] O2 Sat by Pulse 96 97 99 Oximetry 04/08/19 04/08/19 04/08/19 01:31 01:46 02:05 Temperature Pulse Rate 134 H 129 H 135 H Respiratory 17 17 17 Rate Blood Pressure 99/78 Blood Pressure 113/68 123/75 [Left] O2 Sat by Pulse 99 100 100 Oximetry LUCILA score - Lucila Score Age > 65: (0) No Aspirin use within the Past 7 Days: (0) No 3 or more CAD Risk Factors: (0) No 2 or more Angina events in past 24 hrs: (1) Yes Known CAD with more than 50% Stenosis: (0) No Elevated Cardiac Markers: (0) No ST Deviation Greater than 0.5mm: (1) Yes LUCILA Score: 2 ED Medical Decision Making - Lab Data Result diagrams: 04/07/19 22:51 04/07/19 22:51 - EKG Data -: EKG Interpreted by Me - EKG Data When compared to previous EKG there are: previous EKG unavailable Interpretation: other (A. fib with RVR, rate of 141 bpm, right bundle branch block, left anterior fascicular block) - Radiology Data Radiology results: image reviewed interpreted by me: Chest x-ray does not show any acute process. There are no pleural effusions, obvious pneumonia and there is no pneumothorax. - Medical Decision Making This patient presents with a one-day history of chest pain, shortness of breath, palpitations. He has history of paroxysmal A. fib and is currently in A. fib with RVR. Patient's labs are mostly unremarkable except for a TSH that is basically 0. Patient has a history of hyperthyroidism and was previously stopped on his methimazole. I have ordered a free T4 but I suspect h yperthyroidism may be playing a role in this patient's return to atrial fibrillation with RVR. He was given a IV dose of Cardizem with some improvement but not enough to provide rate control. The patient was placed on a Cardizem drip and will be admitted to the ICU. He was accepted for admission by the hospitalist, Dr. Reich. - Differential Diagnosis IA, pneumonia, hyperthyroidism, dysrhythmia Critical Care Time: Yes Critical care time in (mins) excluding proc time.: 31 Critical care attestation.: If time is entered above; I have spent that time in minutes in the direct care of this critically ill patient, excluding procedure time. Critical care time was spent on this patient and doing his initial evaluation, multiple re-evaluations, ordering and interpretation of labs and imaging, o rdering and titration of the Cardizem drip for his A. fib with RVR and multiple conversations with the patient. Critical Care Time: 31 minutes ED Disposition Clinical Impression: Atrial fibrillation with rapid ventricular response, Hyperthyroidism, Acute chest pain Disposition: OP ADMIT IP TO THIS HOSP Is pt being admited?: Yes Condition: Serious Time of Disposition: 02:32
[2019-04-08] MEDS ORDERED: NITROGLYCERIN 0.4 MG TAB SUBL SL PRN (00:44)
[2019-04-08] MEDS ORDERED: TEMAZEPAM 15 MG CAP PO ONE (01:17)
[2019-04-08] MEDS ORDERED: ALBUTEROL 2.5 MG/3 ML NEBU IH PRN (01:31)
[2019-04-08 01:51] LABS: Creatine Kinase MB 1.8 ng/mL (0.0-4.0)
--- NOTE | 2019-04-08 02:07 | History and Physical Report ---
<ROSA MARIA GARCIA - Last Filed: 04/08/19 02:16> History of Present Illness Date of examination: 04/08/19 Date of admission: 04/08/2019 Chief complaint: Chest Pain, palpitation History of present illness: 58-year-old -[place] male with history of obesity, atrial fibrillation anticoagulated on Xarelto, dilated cardiomyopathy with EF 30-35%, hypertension hypothyroidism, diabetes, prostate cancer and asthma presents to the [facility] ED w ith complaints of shortness of breath, palpitations and chest tightness x1 day. Pt states that he feels like is heart is racing. He also complains of chest tightness and shortness of breath with activity. His chest tightness and SOB improves with rest, but his heart continues to race. Pt was previously on methimazole, and states that his physician recently discontinued the med. He admits to being compliant with all meds. He denies any recent hospitalizations, nausea, vomiting or diaphoresis. Past History Past Medical History: atrial fib, diabetes, heart failure, hypertension, hypothyroidism, other (asthma, prostate cancer, KIRAN) Past Surgical History: Other (gastric bypass, Colonoscopy) Social history: Lives alone Family history: no significant family history Medications and Allergies Allergies Allergy/AdvReac Type Severity Reaction Status Date / Time No Known Allergies Allergy Verified 09/11/13 10:09 Home Medications Medication Instructions Recorded Confirmed Last Taken Type Lisinopril [Prinivil] 20 mg PO DAILY 09/24/17 04/08/19 08/28/18 History Temazepam [Restoril] 30 mg PO QHS PRN 04/08/19 04/08/19 1 Day Ago History ~04/07/19 AtorvaSTATin [Lipitor] 20 mg PO DAILY #30 tablet 04/10/19 Unknown Rx Cholecalciferol Vit D3 [Vitamin D3 1,000 unit PO QDAY #30 04/10/19 Unknown Rx 1,000 UNIT TAB] Furosemide [Lasix TAB] 40 mg PO QDAY #30 04/10/19 Unknown Rx Methimazole [Tapazole] 10 mg PO QDAY #30 04/10/19 Unknown Rx Metoprolol [Lopressor TAB] 50 mg PO QDAY #60 04/10/19 Unknown Rx Rivaroxaban [Xarelto] 20 mg PO QPM #30 tablet 04/10/19 Unknown Rx Spironolactone [Aldactone] 25 mg PO DAILY #30 tablet 04/10/19 Unknown Rx Temazepam [Restoril] 30 mg PO QHS PRN capsule 04/10/19 Unknown Rx Victoza 2-Brandon 1.2 mg SUB-Q DAILY #1 packet 04/10/19 Unknown Rx metFORMIN [Glucophage] 1,000 mg PO QAMDIAB #60 tablet 04/10/19 Unknown Rx methIMAzole [Tapazole] 10 mg PO Q24HR tablet 04/10/19 Unknown Rx Active Meds: Active Medications Acetaminophen (Tylenol) 650 mg PO Q4H PRN PRN Reason: Pain MILD(1-3)/Fever >100.5/[place] Albuterol (Proventil) 2.5 mg IH Q4HRT PRN PRN Reason: Shortness Of Breath Atorvastatin Calcium (Lipitor) 20 mg PO DAILY [facility] Cholecalciferol (Vitamin D3) 1,000 unit PO QDAY [facility] Dextrose (D50w (25gm) Syringe) 0 ml IV Q30MIN PRN; Protocol PRN Reason: Hypoglycemia Furosemide (Lasix) 40 mg PO QDAY [facility] Diltiazem HCl (Cardizem/D5w 100mg/100ml) 100 mg in 100 mls @ 5 mls/hr IV TITR ASHLEY; Protocol Last Titration: 04/08/19 00:50 Dose: 7.5 mg/hr, 7.5 mls/hr Documented by: Insulin Human Lispro (Humalog) 0 unit SUB-Q ACHS A[facility]; Protocol Metformin HCl (Glucophage) 1,000 mg PO QAMDIAB [facility] Nitroglycerin (Nitrostat) 0.4 mg SL .Q5MIN PRN PRN Reason: Chest Pain Ondansetron HCl (Zofran) 4 mg IV Q8H PRN PRN Reason: Nausea And Vomiting Potassium Chloride (K-Dur) 10 meq PO QDAY [facility] Rivaroxaban (Xarelto) 20 mg PO QPM A[facility]; Protocol Sodium Chloride (Sodium Chloride Flush Syringe 10 Ml) 10 ml IV BID [facility] Sodium Chloride (Sodium Chloride Flush Syringe 10 Ml) 10 ml IV PRN PRN PRN Reason: LINE FLUSH Spironolactone (Aldactone) 25 mg PO DAILY [facility] Review of Systems All systems: negative Cardiovascular: palpitations, shortness of breath, dyspnea on exertion, other (chest tightness) Exam - Physical Exam Narrative exam: Physical exam General appearance: Present: No acute distress, alert and oriented 3, well developed, pleasant, Dutch - EENT Eyes: Present: PERRL, EOM intact ENT: hearing intact, normal dentition - Neck Neck: Present: supple, normal ROM - Respiratory Respiratory effort: Non-labored Respiratory: Clear throughout - Cardiovascular Heart rate: 141 (bpm) Rhythm: A. fib with RVR Heart Sounds: Present: S1 & S2. Absent: rub, click - Extremities Extremities: no ischemia, pulses intact, - Peripheral Assessment Peripheral Pulses: within normal limits - Abdominal General gastrointestinal: soft, non-tender, normal bowel sounds - Integumentary Integumentary: Present: warm, dry - Musculoskeletal Musculoskeletal: Able to move all extremities -Neurological Neurological: CN II-XII intact - Psychiatric Psychiatric: Appropriate for situation ,cooperative - Constitutional Vitals: Temp Pulse Resp BP Pulse Ox 98.6 F 129 H 17 99/78 100 04/07/19 21:58 04/08/19 01:46 04/08/19 01:46 04/08/19 01:46 04/08/19 01:46 Results - Labs CBC & Chem 7: 04/07/19 22:51 04/07/19 22:51 Labs: Laboratory Last Values WBC 8.3 K/mm3 (4.5-11.0) 04/07/19 22:51 RBC 4.36 M/mm3 (3.65-5.03) 04/07/19 22:51 Hgb 9.7 gm/dl (11.8-15.2) L 04/07/19 22:51 Hct 29.6 % (35.5-45.6) L 04/07/19 22:51 MCV 68 fl (84-94) L 04/07/19 22:51 MCH 22 pg (28-32) L 04/07/19 22:51 MCHC 33 % (32-34) 04/07/19 22:51 RDW 18.8 % (13.2-15.2) H 04/07/19 22:51 Plt Count 332 K/mm3 (140-440) 04/07/19 22:51 Lymph % (Auto) 26.8 % (13.4-35.0) 04/07/19 22:51 Rowan % (Auto) 11.6 % (0.0-7.3) H 04/07/19 22:51 Eos % (Auto) 0.8 % (0.0-4.3) 04/07/19 22:51 Baso % (Auto) 0.5 % (0.0-1.8) 04/07/19 22:51 Lymph # 2.2 K/mm3 (1.2-5.4) 04/07/19 22:51 Rowan # 1.0 K/mm3 (0.0-0.8) H 04/07/19 22:51 Eos # 0.1 K/mm3 (0.0-0.4) 04/07/19 22:51 Baso # 0.0 K/mm3 (0.0-0.1) 04/07/19 22:51 Seg Neutrophils % 60.3 % (40.0-70.0) 04/07/19 22:51 Seg Neutrophils # 5.0 K/mm3 (1.8-7.7) 04/07/19 22:51 PT 21.1 Sec. (12.2-14.9) H 04/07/19 22:51 INR 1.86 (0.87-1.13) H 04/07/19 22:51 APTT 41.7 Sec. (24.2-36.6) H 04/07/19 22:51 Sodium 140 mmol/L (137-145) 04/07/19 22:51 Potassium 4.2 mmol/L (3.6-5.0) 04/07/19 22:51 Chloride 103.0 mmol/L (98-107) 04/07/19 22:51 Carbon Dioxide 24 mmol/L (22-30) 04/07/19 22:51 Anion Gap 17 mmol/L 04/07/19 22:51 BUN 26 mg/dL (9-20) H 04/07/19 22:51 Creatinine 1.1 mg/dL (0.8-1.5) 04/07/19 22:51 Estimated GFR > 60 ml/min 04/07/19 22:51 BUN/Creatinine Ratio 24 % 04/07/19 22:51 Glucose 135 mg/dL (75-100) H 04/07/19 22:51 Calcium 8.8 mg/dL (8.4-10.2) 04/07/19 22:51 Total Creatine Kinase 145 units/L (55-170) 04/08/19 01:24 CK-MB (CK-2) 1.8 ng/mL (0.0-4.0) 04/08/19 01:24 CK-MB (CK-2) Rel Index 1.2 (0-4) 04/08/19 01:24 Troponin T < 0.010 ng/mL (0.00-0.029) 04/08/19 01:24 - Imaging and Cardiology Imaging and Cardiology: CXR: FINDINGS: Support devices: None. Heart: Within normal limits. Lungs/Pleura: No acute air space or interstitial disease. Additional findings: None. IMPRESSION: No acute abnormality. Assessment and Plan Assessment and plan: 58-year-old -Dutch male with history of obesity, atrial fibrillation anticoagulated on Xarelto, dilated cardiomyopathy with EF 30-35%, hypertension hypothyroidism, diabetes, prostate cancer and asthma presents to the [facility] ED wi th complaints of shortness of breath, palpitations and chest tightness x1 day. Pt states that he feels like is heart is racing. He also complains of chest tightness and shortness of breath with activity. His chest tightness and SOB improves with rest, but his heart continues to race. Pt was previously on methimazole, and states that his physician recently discontinued the med. He admits to being compliant with all meds. He denies any recent hospitalizations, nausea, vomiting or diaphoresis. Atrial fibrillation with RVR -Today's EKG shows AFib RVR -History of A. fib -Anticoagulated on Xarelto -Previously rate control on BB -Currently on Cardizem gtt; titrate prn -Cardiology Consulted Acute Chest Pain -Initiate chest pain protocol -Continuous telemetry monitoring -Continue supportive care -Pain mgmt -Troponin negative x1 , will continue to trend -EKG unrevealing for acute ischemic abnormalities -Cardiology consulted Anemia -Hemoglobin on admission 9.7 -No s/s of active bleeding -Continue to monitor hemoglobin -Transfuse as needed Obesity -BMI 47.0kg -Diet and lifestyle modifications -May benefit from OP weight mgmt program Hx CHF -Dilated cardiomyopathy -EF 3035% seen on echo done 10/17/15 -Continue heart failure meds Hx Asthma -Albuterol prn Hx KIRAN -Continue nocturnal CPAP use DVT PPX -on Xarelto VTE prophylaxis?: Chemical Plan of care discussed with patient/family: Yes <NIKKI CAICEDO Lukas - Last Filed: 04/11/19 05:22> History of Present Illness Date of admission: 04/08/19 00:33 Medications and Allergies Active Meds: Active Medications Acetaminophen (Tylenol) 650 mg PO Q4H PRN PRN Reason: Pain MILD(1-3)/Fever >100.5/[place] Albuterol (Proventil) 2.5 mg IH Q4HRT PRN PRN Reason: Shortness Of Breath Atorvastatin Calcium (Lipitor) 20 mg PO DAILY [facility] Cholecalciferol (Vitamin D3) 1,000 unit PO QDAY [facility] Dextrose (D50w (25gm) Syringe) 0 ml IV Q30MIN PRN; Protocol PRN Reason: Hypoglycemia Furosemide (Lasix) 40 mg PO QDAY [facility] Amiodarone HCl 900 mg/ (Dextrose) 500 mls @ 33.333 mls/hr IV DIRECT ASHLEY; Protocol Insulin Human Lispro (Humalog) 0 unit SUB-Q ACHS ASHLEY; Protocol Metformin HCl (Glucophage) 1,000 mg PO QAMDIAB [facility] Nitroglycerin (Nitrostat) 0.4 mg SL .Q5MIN PRN PRN Reason: Chest Pain Last Admin: 04/08/19 03:29 Dose: 0.4 mg Documented by: Ondansetron HCl (Zofran) 4 mg IV Q8H PRN PRN Reason: Nausea And Vomiting Potassium Chloride (K-Dur) 10 meq PO QDAY [facility] Rivaroxaban (Xarelto) 20 mg PO QPM [facility]SHLEY; Protocol Sodium Chloride (Sodium Chloride Flush Syringe 10 Ml) 10 ml IV BID [facility] Sodium Chloride (Sodium Chloride Flush Syringe 10 Ml) 10 ml IV PRN PRN PRN Reason: LINE FLUSH Spironolactone (Aldactone) 25 mg PO DAILY [facility] Exam - Constitutional Vitals: Temp Pulse Resp BP Pulse Ox 98.6 F 132 H 17 105/61 100 04/07/19 21:58 04/08/19 03:29 04/08/19 02:05 04/08/19 03:29 04/08/19 02:05 Results - Labs CBC & Chem 7: 04/09/19 04:50 04/09/19 04:50 Labs: Laboratory Last Values WBC 8.3 K/mm3 (4.5-11.0) 04/07/19 22:51 RBC 4.36 M/mm3 (3.65-5.03) 04/07/19 22:51 Hgb 9.7 gm/dl (11.8-15.2) L 04/07/19 22:51 Hct 29.6 % (35.5-45.6) L 04/07/19 22:51 MCV 68 fl (84-94) L 04/07/19 22:51 MCH 22 pg (28-32) L 04/07/19 22:51 MCHC 33 % (32-34) 04/07/19 22:51 RDW 18.8 % (13.2-15.2) H 04/07/19 22:51 Plt Count 332 K/mm3 (140-440) 04/07/19 22:51 Lymph % (Auto) 26.8 % (13.4-35.0) 04/07/19 22:51 Rowan % (Auto) 11.6 % (0.0-7.3) H 04/07/19 22:51 Eos % (Auto) 0.8 % (0.0-4.3) 04/07/19 22:51 Baso % (Auto) 0.5 % (0.0-1.8) 04/07/19 22:51 Lymph # 2.2 K/mm3 (1.2-5.4) 04/07/19 22:51 Rowan # 1.0 K/mm3 (0.0-0.8) H 04/07/19 22:51 Eos # 0.1 K/mm3 (0.0-0.4) 04/07/19 22:51 Baso # 0.0 K/mm3 (0.0-0.1) 04/07/19 22:51 Seg Neutrophils % 60.3 % (40.0-70.0) 04/07/19 22:51 Seg Neutrophils # 5.0 K/mm3 (1.8-7.7) 04/07/19 22:51 PT 21.1 Sec. (12.2-14.9) H 04/07/19 22:51 INR 1.86 (0.87-1.13) H 04/07/19 22:51 APTT 41.7 Sec. (24.2-36.6) H 04/07/19 22:51 Sodium 140 mmol/L (137-145) 04/07/19 22:51 Potassium 4.2 mmol/L (3.6-5.0) 04/07/19 22:51 Chloride 103.0 mmol/L (98-107) 04/07/19 22:51 Carbon Dioxide 24 mmol/L (22-30) 04/07/19 22:51 Anion Gap 17 mmol/L 04/07/19 22:51 BUN 26 mg/dL (9-20) H 04/07/19 22:51 Creatinine 1.1 mg/dL (0.8-1.5) 04/07/19 22:51 Estimated GFR > 60 ml/min 04/07/19 22:51 BUN/Creatinine Ratio 24 % 04/07/19 22:51 Glucose 135 mg/dL (75-100) H 04/07/19 22:51 Hemoglobin A1c 6.5 % (4-6) H 04/08/19 01:24 Calcium 8.8 mg/dL (8.4-10.2) 04/07/19 22:51 Total Creatine Kinase 145 units/L (55-170) 04/08/19 01:24 CK-MB (CK-2) 1.8 ng/mL (0.0-4.0) 04/08/19 01:24 CK-MB (CK-2) Rel Index 1.2 (0-4) 04/08/19 01:24 Troponin T < 0.010 ng/mL (0.00-0.029) 04/08/19 01:24 TSH < 0.005 mlU/mL (0.270-4.200) L 04/08/19 01:24 Assessment and Plan Assessment and plan: 58-year-old woman with a history of hypertension, diabetes, CHF, hypothyroidism, A. fib comes emergency room with complaints of palpitation, chest pain in the left substernal area at this started yesterday. He stated that he's been compliant with medication. The patient was started on Cardizem drip in the emergency room, all of her is heart rate is been uncontrolled, DC Cardizem drip, start amiodarone drip, check cardiac enzymes, TSH. Patient had a stress test on year ago, cardiology to see. Restart tapazole, patient non compliant with this medication
[2019-04-08] MEDS ORDERED: NITROGLYCERIN 0.4 MG TAB SUBL SL ONE (03:26)
[2019-04-08] MEDS: methIMAzole 5 MG TAB PO SCH ×2 (03:59→11:44)
[2019-04-08] MEDS ORDERED: AMIODARONE 900 MG in DEXTROSE 5% IN WATER 482 ML IV SCH ×2 (04:00→18:12)
[2019-04-08 06:07] LABS: Creatine Kinase MB 1.8 ng/mL (0.0-4.0)
[2019-04-08] MEDS: metFORMIN 500 MG TAB PO SCH (08:45)
[2019-04-08] MEDS ORDERED: metFORMIN 500 MG TAB ONE (08:53)
[2019-04-08] MEDS: INSULIN LISPRO 100 UNIT/ML SUB-Q SCH ×4 (10:35→21:50)
[2019-04-08] MEDS: CHOLECALCIFEROL (VIT D3) 1000 UNIT TAB PO SCH (10:46)
[2019-04-08] MEDS: FUROSEMIDE 40 MG TAB PO SCH (10:46)
[2019-04-08] MEDS: SPIRONOLACTONE 25 MG TAB PO SCH (10:46)
[2019-04-08] MEDS: POTASSIUM CHLORIDE ER 10 MEQ TAB PO SCH (10:46)
--- NOTE | 2019-04-08 10:53 | Consultation ---
History of Present Illness - Reason for Consult Consult date: 04/08/19 Afib Requesting physician: KT TURK - History of Present Illness 58 y/o male with Hyperthyroidism and known afib admitted with afib with RVR. Patient was recently taken of his methimazole by his primary care physician. Currently on Amio drip and rate is controlled. Was already on anticoagulation wit Xarelto. Past History Past Medical History: atrial fib, diabetes, heart failure, hyperthyroidism, hypertension, other (asthma, prostate cancer, KIRAN) Past Surgical History: Other (gastric bypass, Colonoscopy) Social history: Lives alone Family history: no significant family history Medications and Allergies Allergies Allergy/AdvReac Type Severity Reaction Status Date / Time No Known Allergies Allergy Verified 09/11/13 10:09 Home Medications Medication Instructions Recorded Confirmed Last Taken Type Lisinopril [Prinivil] 20 mg PO DAILY 09/24/17 04/08/19 08/28/18 History Rivaroxaban [Xarelto] 20 mg PO QPM 09/24/17 04/08/19 08/26/18 History Spironolactone [Aldactone] 25 mg PO DAILY 09/24/17 04/08/19 08/28/18 History Atorvastatin 20 mg PO DAILY 08/28/18 04/08/19 08/28/18 History Victoza 2-Brandon 1.2 mg SUB-Q DAILY 08/28/18 04/08/19 08/28/18 History Cholecalciferol Vit D3 [Vitamin D3 1,000 unit PO QDAY 04/08/19 04/08/19 Unknown History 1,000 UNIT TAB] Furosemide [Lasix TAB] 40 mg PO QDAY 04/08/19 04/08/19 Unknown History Metformin HCl [metFORMIN] 1,000 mg PO QDAY 04/08/19 04/08/19 Unknown History Methimazole [Tapazole] 10 mg PO QDAY 04/08/19 04/08/19 Unknown History Metoprolol [Lopressor TAB] 50 mg PO QDAY 04/08/19 04/08/19 Unknown History Potassium Chloride 10 meq PO QDAY 04/08/19 04/08/19 Unknown History Active Meds: Active Medications Acetaminophen (Tylenol) 650 mg PO Q4H PRN PRN Reason: Pain MILD(1-3)/Fever >100.5/[place] Albuterol (Proventil) 2.5 mg IH Q4HRT PRN PRN Reason: Shortness Of Breath Atorvastatin Calcium (Lipitor) 20 mg PO DAILY [facility] Last Admin: 04/08/19 10:46 Dose: 20 mg Documented by: Cholecalciferol (Vitamin D3) 1,000 unit PO QDAY [facility] Last Admin: 04/08/19 10:46 Dose: 1,000 unit Documented by: Dextrose (D50w (25gm) Syringe) 0 ml IV Q30MIN PRN; Protocol PRN Reason: Hypoglycemia Furosemide (Lasix) 40 mg PO QDAY [facility] Last Admin: 04/08/19 10:46 Dose: 40 mg Documented by: Amiodarone HCl 900 mg/ (Dextrose) 500 mls @ 33.333 mls/hr IV DIRECT ASHLEY; Protocol Last Titration: 04/08/19 10:06 Dose: 0.5 mg/min, 16.667 mls/hr Documented by: Insulin Human Lispro (Humalog) 0 unit SUB-Q ACHS [facility]; Protocol Last Admin: 04/08/19 10:35 Dose: Not Given Documented by: Metformin HCl (Glucophage) 1,000 mg PO QAMDIAB [facility] Last Admin: 04/08/19 08:45 Dose: 1,000 mg Documented by: Methimazole (Tapazole) 10 mg PO Q24HR [facility] Last Admin: 04/08/19 03:59 Dose: 10 mg Documented by: Nitroglycerin (Nitrostat) 0.4 mg SL .Q5MIN PRN PRN Reason: Chest Pain Last Admin: 04/08/19 03:29 Dose: 0.4 mg Documented by: Ondansetron HCl (Zofran) 4 mg IV Q8H PRN PRN Reason: Nausea And Vomiting Potassium Chloride (K-Dur) 10 meq PO QDAY [facility] Last Admin: 04/08/19 10:46 Dose: 10 meq Documented by: Rivaroxaban (Xarelto) 20 mg PO QPM [facility]; Protocol Sodium Chloride (Sodium Chloride Flush Syringe 10 Ml) 10 ml IV BID [facility] Last Admin: 04/08/19 10:47 Dose: 10 ml Documented by: Sodium Chloride (Sodium Chloride Flush Syringe 10 Ml) 10 ml IV PRN PRN PRN Reason: LINE FLUSH Spironolactone (Aldactone) 25 mg PO DAILY [facility] Last Admin: 04/08/19 10:46 Dose: 25 mg Documented by: Review of Systems All systems: negative Exam - Constitutional Vitals: Temp Pulse Resp BP Pulse Ox 98.0 F 134 H 18 125/68 99 04/08/19 07:30 04/08/19 10:46 04/08/19 08:36 04/08/19 10:46 04/08/19 08:22 General appearance: Present: no acute distress, well-nourished, obese - EENT Eyes: Present: PERRL, EOM intact - Neck Neck: Present: supple, normal ROM - Respiratory Respiratory effort: normal Respiratory: bilateral: CTA Results - Labs CBC & Chem 7: 04/07/19 22:51 04/07/19 22:51 Labs: Abnormal lab results 04/07/19 04/07/19 04/07/19 Range/Units 22:51 22:51 22:51 Hgb 9.7 L (11.8-15.2) gm/dl Hct 29.6 L (35.5-45.6) % MCV 68 L (84-94) fl MCH 22 L (28-32) pg RDW 18.8 H (13.2-15.2) % [place] % (Auto) 11.6 H (0.0-7.3) % [place] # 1.0 H (0.0-0.8) K/mm3 PT 21.1 H (12.2-14.9) Sec. INR 1.86 H (0.87-1.13) APTT 41.7 H (24.2-36.6) Sec. BUN 26 H (9-20) mg/dL Glucose 135 H (75-100) mg/dL POC Glucose (70-105) Hemoglobin A1c (4-6) % TSH (0.270-4.200) mlU/mL Free T4 (0.76-1.46) ng/dL 04/08/19 04/08/19 04/08/19 Range/Units 01:24 01:24 01:24 Hgb (11.8-15.2) gm/dl Hct (35.5-45.6) % MCV (84-94) fl MCH (28-32) pg RDW (13.2-15.2) % [place] % (Auto) (0.0-7.3) % [place] # (0.0-0.8) K/mm3 PT (12.2-14.9) Sec. INR (0.87-1.13) APTT (24.2-36.6) Sec. BUN (9-20) mg/dL Glucose (75-100) mg/dL POC Glucose (70-105) Hemoglobin A1c 6.5 H (4-6) % TSH < 0.005 L (0.270-4.200) mlU/mL Free T4 2.85 H (0.76-1.46) ng/dL 04/08/19 Range/Units 06:57 Hgb (11.8-15.2) gm/dl Hct (35.5-45.6) % MCV (84-94) fl MCH (28-32) pg RDW (13.2-15.2) % [place] % (Auto) (0.0-7.3) % [place] # (0.0-0.8) K/mm3 PT (12.2-14.9) Sec. INR (0.87-1.13) APTT (24.2-36.6) Sec. BUN (9-20) mg/dL Glucose (75-100) mg/dL POC Glucose 133 H (70-105) Hemoglobin A1c (4-6) % TSH (0.270-4.200) mlU/mL Free T4 (0.76-1.46) ng/dL - Imaging and Cardiology Chest x-ray: image reviewed (clear, no evidence of acute disease) Assessment and Plan 58 y/o male with afib with RVR and hyperthyroid. 1. Transfer to floor 2. Cards has seen and will keep on drip for now and add oral medication for rate control 3. All others per primary team.
--- NOTE | 2019-04-08 12:34 | Consultation ---
<MICHELE THOMAS - Last Filed: 04/08/19 12:28> History of Present Illness Consult date: 04/08/19 Consult reason: atrial fibrillation History of present illness: This is a 58-year old male with multiple medical problems. He has hypertension, morbid obesity and obstructive sleep apnea. His cardiac history of paroxysmal atrial fibrillation and non-ischemic cardiomyopathy, ejection fraction 30-35% by an echocadriogram done at this hospital three years ago. He is on Xarelto for oral anticoagulation therapy. Patient also has a history of hyperthyroidism. Patient reports his primary physician took him off his thyroid therapy several weeks ago. Patient presents with shortness of breath, chest pain, palpitations, admitted with rapid atrial fibrillation. Initial labs revealed hyperthyroidism, TSH <0.005 with an elevated free T4 which is likely the cause of his recurrent atrial fibrillation. He is on intravenous amiodarone and his rate is in the low 100s. A cardiac consultation has been requested for further management of his atrial fibrillation. Past History Past Medical History: atrial fib, diabetes, heart failure, hyperthyroidism, hypertension, other (asthma, prostate cancer, KIRAN) Past Surgical History: Other (gastric bypass, Colonoscopy) Social history: Lives alone Family history: no significant family history Medications and Allergies Allergies Allergy/AdvReac Type Severity Reaction Status Date / Time No Known Allergies Allergy Verified 09/11/13 10:09 Home Medications Medication Instructions Recorded Confirmed Last Taken Type Lisinopril [Prinivil] 20 mg PO DAILY 09/24/17 04/08/19 08/28/18 History Temazepam [Restoril] 30 mg PO QHS PRN 04/08/19 04/08/19 1 Day Ago History ~04/07/19 AtorvaSTATin [Lipitor] 20 mg PO DAILY #30 tablet 04/10/19 Unknown Rx Cholecalciferol Vit D3 [Vitamin D3 1,000 unit PO QDAY #30 04/10/19 Unknown Rx 1,000 UNIT TAB] Furosemide [Lasix TAB] 40 mg PO QDAY #30 04/10/19 Unknown Rx Methimazole [Tapazole] 10 mg PO QDAY #30 04/10/19 Unknown Rx Metoprolol [Lopressor TAB] 50 mg PO QDAY #60 04/10/19 Unknown Rx Rivaroxaban [Xarelto] 20 mg PO QPM #30 tablet 04/10/19 Unknown Rx Spironolactone [Aldactone] 25 mg PO DAILY #30 tablet 04/10/19 Unknown Rx Temazepam [Restoril] 30 mg PO QHS PRN capsule 04/10/19 Unknown Rx Victoza 2-Brandon 1.2 mg SUB-Q DAILY #1 packet 04/10/19 Unknown Rx metFORMIN [Glucophage] 1,000 mg PO QAMDIAB #60 tablet 04/10/19 Unknown Rx methIMAzole [Tapazole] 10 mg PO Q24HR tablet 04/10/19 Unknown Rx Active Meds: Active Medications Acetaminophen (Tylenol) 650 mg PO Q4H PRN PRN Reason: Pain MILD(1-3)/Fever >100.5/[place] Albuterol (Proventil) 2.5 mg IH Q4HRT PRN PRN Reason: Shortness Of Breath Atorvastatin Calcium (Lipitor) 20 mg PO DAILY ASHLEY Last Admin: 04/08/19 10:46 Dose: 20 mg Documented by: Cholecalciferol (Vitamin D3) 1,000 unit PO QDAY ASHLEY Last Admin: 04/08/19 10:46 Dose: 1,000 unit Documented by: Dextrose (D50w (25gm) Syringe) 0 ml IV Q30MIN PRN; Protocol PRN Reason: Hypoglycemia Furosemide (Lasix) 40 mg PO QDAY ASHLEY Last Admin: 04/08/19 10:46 Dose: 40 mg Documented by: Amiodarone HCl 900 mg/ (Dextrose) 500 mls @ 33.333 mls/hr IV DIRECT ASHLEY; Protocol Last Titration: 04/08/19 10:06 Dose: 0.5 mg/min, 16.667 mls/hr Documented by: Insulin Human Lispro (Humalog) 0 unit SUB-Q ACHS ASHLEY; Protocol Last Admin: 04/08/19 12:05 Dose: Not Given Documented by: Metformin HCl (Glucophage) 1,000 mg PO QAMDIAB ASHLEY Last Admin: 04/08/19 08:45 Dose: 1,000 mg Documented by: Methimazole (Tapazole) 10 mg PO Q24HR ASHLEY Last Admin: 04/08/19 11:44 Dose: Not Given Documented by: Nitroglycerin (Nitrostat) 0.4 mg SL .Q5MIN PRN PRN Reason: Chest Pain Last Admin: 04/08/19 03:29 Dose: 0.4 mg Documented by: Ondansetron HCl (Zofran) 4 mg IV Q8H PRN PRN Reason: Nausea And Vomiting Potassium Chloride (K-Dur) 10 meq PO QDAY [facility] Last Admin: 04/08/19 10:46 Dose: 10 meq Documented by: Rivaroxaban (Xarelto) 20 mg PO QPM [facility]; Protocol Sodium Chloride (Sodium Chloride Flush Syringe 10 Ml) 10 ml IV BID [facility] Last Admin: 04/08/19 10:47 Dose: 10 ml Documented by: Sodium Chloride (Sodium Chloride Flush Syringe 10 Ml) 10 ml IV PRN PRN PRN Reason: LINE FLUSH Spironolactone (Aldactone) 25 mg PO DAILY [facility] Last Admin: 04/08/19 10:46 Dose: 25 mg Documented by: Physical Examination Vital Signs Temp Pulse Resp BP Pulse Ox 98.6 F 62 18 113/72 97 04/07/19 21:58 04/07/19 21:58 04/07/19 21:58 04/07/19 21:58 04/07/19 21:58 General appearance: no acute distress HEENT: Positive: PERRL Neck: Positive: trachea midline Cardiac: Positive: irregularly irregular Lungs: Positive: Decreased Breath Sounds Neuro: Positive: Grossly Intact Results 04/07/19 22:51 04/07/19 22:51 Cardiac Enzymes 04/08/19 04/08/19 Range/Units 01:24 05:29 CK-MB (CK-2) 1.8 1.8 (0.0-4.0) ng/mL Coagulation 04/07/19 Range/Units 22:51 PT 21.1 H (12.2-14.9) Sec. INR 1.86 H (0.87-1.13) APTT 41.7 H (24.2-36.6) Sec. CBC 04/07/19 Range/Units 22:51 WBC 8.3 (4.5-11.0) K/mm3 RBC 4.36 (3.65-5.03) M/mm3 Hgb 9.7 L (11.8-15.2) gm/dl Hct 29.6 L (35.5-45.6) % Plt Count 332 (140-440) K/mm3 Lymph # 2.2 (1.2-5.4) K/mm3 [place] # 1.0 H (0.0-0.8) K/mm3 Eos # 0.1 (0.0-0.4) K/mm3 Baso # 0.0 (0.0-0.1) K/mm3 Comprehensive Metabolic Panel 04/07/19 Range/Units 22:51 Sodium 140 (137-145) mmol/L Potassium 4.2 (3.6-5.0) mmol/L Chloride 103.0 (98-107) mmol/L Carbon Dioxide 24 (22-30) mmol/L BUN 26 H (9-20) mg/dL Creatinine 1.1 (0.8-1.5) mg/dL Glucose 135 H (75-100) mg/dL Calcium 8.8 (8.4-10.2) mg/dL Assessment and Plan Paroxysmal atrial fibrillation on IV amiodarone for suppression on Xarelto as an outpatient Hx of Dilated NICMP EF 30-35% Hyperthyroidism Diabetes Hypertension Obesity KIRAN Continue IV amiodarone for suppression of his atrial fibrillation. We will add beta blockers in addition. Continue medical therapy for dilated nonischemic cardiomyopathy. <MARILIN WEBBER - Last Filed: 04/11/19 10:33> Physical Examination Vital Signs Temp Pulse Resp BP Pulse Ox 98.6 F 62 18 113/72 97 04/07/19 21:58 04/07/19 21:58 04/07/19 21:58 04/07/19 21:58 04/07/19 21:58 Results 04/09/19 04:50 04/09/19 04:50 Assessment and Plan I seen and evaluated the patient and agree with the assessment and plan. The patient presents with paroxysmal atrial fibrillation, dilated nonischemic cardiomyopathy with ejection fraction of 30-35%, hyperthyroidism, diabetes, hypertension. At this time patient is currently on IV amiodarone for suppression of atrial fibrillation. Patient is poorly rate controlled. We will add AV awilda blockers for treatment of atrial fibrillation as well. With respect to the patient's dilated nonischemic cardiomyopathy we will manage with goal-directed medical therapy.
[2019-04-08] MEDS ORDERED: METOPROLOL TARTRATE 5 MG/5 ML INJ IV PRN (12:52)
[2019-04-08] MEDS: carvediloL 12.5 MG TAB PO SCH ×2 (13:44→21:51)
[2019-04-08] MEDS: RIVAROXABAN 20 MG TAB PO SCH (18:21)
[2019-04-09] MEDS: TEMAZEPAM 15 MG CAP PO PRN (00:45)
[2019-04-09 06:16] LABS: Basophils % (Auto) 0.5 % (0.0-1.8); Eosinophils # (Auto) 0.1 K/mm3 (0.0-0.4); Eosinophils % (Auto) 1.4 % (0.0-4.3); Hematocrit 27.9 % (35.5-45.6); Hemoglobin 9.3 gm/dl (11.8-15.2); Lymphocytes # (Auto) 2.2 K/mm3 (1.2-5.4); Lymphocytes % (Auto) 29.3 % (13.4-35.0); Mean Corpuscular HGB Conc 33 % (32-34); Monocytes # (Auto) 0.8 K/mm3 (0.0-0.8); Monocytes % (Auto) 11.1 % (0.0-7.3); Platelet Count 298 K/mm3 (140-440); Red Blood Count 4.11 M/mm3 (3.65-5.03); Red Cell Distribution Width 19.2 % (13.2-15.2)
[2019-04-09 06:36] LABS: Mean Corpuscular Volume 68 fl (84-94)
[2019-04-09 06:46] LABS: BUN/Creatinine Ratio 25; Blood Urea Nitrogen 20 mg/dL (9-20); Calcium 8.6 mg/dL (8.4-10.2); Hemolysis Index 1
--- NOTE | 2019-04-09 09:13 | Progress Note ---
Assessment and Plan Paroxysmal atrial fibrillation on IV amiodarone for suppression; spontaneously reverted to sinus rhythm on Xarelto as an outpatient Hx of Dilated NICMP EF 30-35% Hyperthyroidism Diabetes Hypertension Obesity KIRAN Subjective Date of service: 04/09/19 Interval history: Spontaneously reverted to sinus rhythm. Objective Vital Signs Temp Pulse Pulse Resp BP Pulse Ox 04/09/19 03:12 98.3 F 78 20 121/67 96 04/08/19 23:20 99.1 F 80 20 106/64 96 04/08/19 22:35 16 04/08/19 22:00 80 04/08/19 21:51 79 138/76 04/08/19 19:32 98.2 F 79 18 138/76 98 04/08/19 16:14 98.7 F 79 20 127/68 100 04/08/19 13:44 88 128/70 04/08/19 13:40 89 19 125/68 95 04/08/19 13:30 88 17 128/70 98 04/08/19 13:20 88 21 118/75 100 04/08/19 13:10 90 15 118/75 98 04/08/19 13:00 96 H 21 125/68 100 04/08/19 12:50 107 H 24 118/75 97 04/08/19 12:40 157 H 19 118/75 99 04/08/19 12:30 140 H 16 118/75 99 04/08/19 12:20 136 H 19 118/75 97 04/08/19 12:10 122 H 19 118/75 100 04/08/19 12:00 97.9 F 131 H 20 118/75 100 04/08/19 11:50 129 H 19 125/68 100 04/08/19 11:40 117 H 20 115/77 100 04/08/19 11:30 110 H 15 115/77 99 04/08/19 11:20 116 H 18 115/77 99 04/08/19 11:10 122 H 113 H 22 115/77 100 04/08/19 11:00 128 H 20 125/68 100 04/08/19 10:50 120 H 14 125/68 100 04/08/19 10:46 134 H 125/68 04/08/19 10:40 126 H 20 125/68 100 04/08/19 10:30 137 H 18 125/68 99 04/08/19 10:20 122 H 16 125 98 04/08/19 10:10 126 H 19 125 100 04/08/19 10:00 125 H 19 11562 100 04/08/19 09:50 127 H 14 115 100 04/08/19 09:40 131 H 21 115 99 04/08/19 09:37 97.4 F L 04/08/19 09:34 139 H 16 - Physical Examination General: No Apparent Distress, Other (obese) HEENT: Positive: PERRL Neck: Positive: trachea midline Cardiac: Positive: Reg Rate and Rhythm Lungs: Positive: Decreased Breath Sounds Neuro: Positive: Grossly Intact - Labs and Meds CBC 04/09/19 Range/Units 04:50 WBC 7.5 (4.5-11.0) K/mm3 RBC 4.11 (3.65-5.03) M/mm3 Hgb 9.3 L (11.8-15.2) gm/dl Hct 27.9 L (35.5-45.6) % Plt Count 298 (140-440) K/mm3 Lymph # 2.2 (1.2-5.4) K/mm3 Alexander # 0.8 (0.0-0.8) K/mm3 Eos # 0.1 (0.0-0.4) K/mm3 Baso # 0.0 (0.0-0.1) K/mm3 Comprehensive Metabolic Panel 04/09/19 Range/Units 04:50 Sodium 140 (137-145) mmol/L Potassium 4.0 (3.6-5.0) mmol/L Chloride 102.7 (98-107) mmol/L Carbon Dioxide 23 (22-30) mmol/L BUN 20 (9-20) mg/dL Creatinine 0.8 (0.8-1.5) mg/dL Glucose 106 H (75-100) mg/dL Calcium 8.6 (8.4-10.2) mg/dL
[2019-04-09] MEDS: INSULIN LISPRO 100 UNIT/ML SUB-Q SCH ×4 (09:37→22:48)
[2019-04-09] MEDS: metFORMIN 500 MG TAB PO SCH (09:38)
[2019-04-09] MEDS: FUROSEMIDE 40 MG TAB PO SCH (09:38)
[2019-04-09] MEDS: methIMAzole 5 MG TAB PO SCH (09:39)
[2019-04-09] MEDS: POTASSIUM CHLORIDE ER 10 MEQ TAB PO SCH (09:39)
[2019-04-09] MEDS: carvediloL 12.5 MG TAB PO SCH (09:39)
[2019-04-09] MEDS: SPIRONOLACTONE 25 MG TAB PO SCH (09:39)
[2019-04-09] MEDS: CHOLECALCIFEROL (VIT D3) 1000 UNIT TAB PO SCH (09:40)
[2019-04-09] MEDS: RIVAROXABAN 20 MG TAB PO SCH (17:21)
[2019-04-09] MEDS: carvediloL 25 MG TAB PO SCH (22:47)
[2019-04-10] MEDS: TEMAZEPAM 15 MG CAP PO PRN (00:14)
--- NOTE | 2019-04-10 08:19 | Event Note ---
Date: 04/09/[address] Elizabeth's Service
[2019-04-10 08:34] VITALS: BP 133/73
--- NOTE | 2019-04-10 08:34 | Progress Note ---
Assessment and Plan Atrial fibrillation with RVR -Today's EKG shows AFib RVR -History of A. fib -Anticoagulated on Xarelto -Previously rate control on BB -Currently on Cardizem gtt; titrate prn -Cardiology Consult appreciated Acute Chest Pain -Initiate chest pain protocol -Continuous telemetry monitoring -Continue supportive care -Pain mgmt -Troponin negative x1 , will continue to trend -EKG unrevealing for acute ischemic abnormalities Anemia -Hemoglobin on admission 9.7 -No s/s of active bleeding -Continue to monitor hemoglobin -Transfuse as needed Obesity -BMI 47.0kg -Diet and lifestyle modifications -May benefit from OP weight mgmt program Hx CHF -Dilated cardiomyopathy -EF 3035% seen on echo done 10/17/15 -Continue heart failure meds Hx Asthma -Albuterol prn Hx KIRAN -Continue nocturnal CPAP use DVT PPX -on Xarelto Subjective Date of service: 04/09/19 Principal diagnosis: A fib with RVR Interval history: 58-year-old -[place] male with history of obesity, atrial fibrillation anticoagulated on Xarelto, dilated cardiomyopathy with EF 30-35%, hypertension hypothyroidism, diabetes, prostate cancer and asthma presents to the [facility] ED with complaints of shortness of breath, palpitations and chest tightness x1 day. Pt states that he feels like is heart is racing. He also complains of chest tightness and shortness of breath with activity. His chest tightness and SOB improves with rest, but his heart continues to race. Pt was previously on methimazole, and states that his physician recently discontinued the med. He admits to being compliant with all meds. He denies any recent hospitalizations, nausea, vomiting or diaphoresis. Sx better Objective - Constitutional Vitals: Vital Signs - 12hr 04/09/19 04/09/19 04/10/19 22:00 23:20 03:31 Temperature 98.0 F 98.0 F Pulse Rate 83 84 Respiratory 20 18 Rate Blood Pressure 141/85 121/76 O2 Sat by Pulse 97 Oximetry General appearance: Present: no acute distress, well-nourished - EENT Eyes: PERRL, EOM intact ENT: hearing intact, clear oral mucosa Ears: bilateral: normal - Neck Neck: supple, normal ROM - Respiratory Respiratory effort: normal Respiratory: bilateral: CTA - Breasts Breasts: normal - Cardiovascular Heart rate: 100 Rhythm: irregularly irregular Heart Sounds: Present: S1 & S2. Absent: gallop, rub Extremities: pulses intact, No edema, normal color, Full ROM - Gastrointestinal General gastrointestinal: Present: soft, non-tender, non-distended, normal bowel sounds - Genitourinary Male genitourinary: normal - Integumentary Integumentary: clear, warm, dry - Musculoskeletal Musculoskeletal: 1, strength equal bilaterally - Neurologic Neurologic: moves all extremities - Psychiatric Psychiatric: memory intact, appropriate mood/affect, intact judgment & insight - Allied health notes Allied health notes reviewed: nursing, case management - Labs CBC & Chem 7: 04/09/19 04:50 04/09/19 04:50 Labs: Abnormal lab results 04/09/19 04/09/19 04/10/19 Range/Units 08:31 11:35 08:18 POC Glucose 125 H 173 H 131 H (70-105)
--- NOTE | 2019-04-10 09:21 | Progress Note ---
Assessment and Plan Symptomatic atrial fibrillation TSH less than 0.005 spontaneously reverted to sinus rhythm; on coreg for suppression on Xarelto as an outpatient; [place] suspect [place] [facility] [place]x of Dilated NICMP EF 30-35% Hyperthyroidism Diabetes Hypertension Obesity KIRAN Recommendations: Continue beta diann therapy for suppression of atrial fibrillation. Stable for cardiac discharge. Subjective Date of service: 04/10/19 Principal diagnosis: A fib with RVR Interval history: Stable sinus rhythm on telemetry. Objective Vital Signs Temp Pulse Resp BP Pulse Ox 04/10/19 08:10 98.6 F 79 17 133/73 97 04/10/19 03:31 98.0 F 84 18 121/76 97 04/09/19 23:20 98.0 F 20 141/85 04/09/19 22:00 83 04/09/19 19:38 98.0 F 92 H 18 132/75 97 04/09/19 16:46 98.2 F 18 117/56 04/09/19 11:17 98.8 F 80 18 114/71 95 04/09/19 10:00 76 18 04/09/19 09:39 80 122/74 - Physical Examination General: No Apparent Distress, Other (obese) HEENT: Positive: PERRL Neck: Positive: trachea midline Cardiac: Positive: Reg Rate and Rhythm Neuro: Positive: Grossly Intact
--- NOTE | 2019-04-10 09:53 | Progress Note ---
Assessment and Plan Mr. Cheatham is an office patient of [employer] who has hyperthyroidism and was on methimazole. Blood draw in my office as of March 2018 shows a severe hypothyroidism. Patient was getting weight. Methimazole was held. Repeat blood draw October 2018 showed normal thyroid levels. He was advised to follow-up with his pyrometallurgical engineer. However patient's did not keep that appointment. Presented to medicine department with hypothyroidism and a trial fibrillation. Was placed on Amiodarone. Rate was controlled. Shortness of breath improved. No more chest pain Atrial fibrillation with RVR -Today's EKG shows AFib RVR -History of A. fib -Anticoagulated on Xarelto -Previously rate control on BB -Currently on Cardizem gtt; titrate prn -Cardiology Consult appreciated Acute Chest Pain -Initiate chest pain protocol -Continuous telemetry monitoring -Continue supportive care -Pain mgmt -Troponin negative x1 , will continue to trend -EKG unrevealing for acute ischemic abnormalities T2DM - controlled with A1c 6.5% -On sliding scale insulin Consistent divided diet Anemia -Hemoglobin on admission 9.7 -No s/s of active bleeding -Continue to monitor hemoglobin -Transfuse as needed Morbid Obesity -BMI 47.0kg -Diet and lifestyle modifications -May benefit from OP weight mgmt program Hx CHF -Dilated cardiomyopathy -EF 30-35% seen on echo done 10/17/15 -Continue heart failure meds Hx Asthma -Albuterol prn Hx KIRAN -Continue nocturnal CPAP use DVT PPX -on Xarelto Subjective Date of service: 04/10/19 Principal diagnosis: A fib with RVR Interval history: Mr. Cheatham is an office patient of [employer] who is hyperthyroidism. Was admitted to methimazole. Blood draw in my office as of March 2018 shows a hypothyroidism severe and patient was getting weight. Methimazole was held. Repeat blood draw 2018 showed normal thyroid levels. She was advised to follow-up with his pyrometallurgical engineer. However on patient's did not keep that appointment. Presented to medicine department with hypothyroidism and a trial fibrillation. Was placed on amiodarone. Rate was controlled. Shortness of breath improved. Objective - Exam Narrative Exam: Constitutional: Well-nourished well-developed. In no distress Head: Normocephalic atraumatic Eyes: Pupils are equal round and reactive to light Nose: No enlarged turbinates, no septal deviation. Mouth: Moist mucous membranes. Neck: Supple no thyromegaly. No bruit. No JVD Heart: Irregularly irregular, S1-S2 normal. No rubs murmurs or gallop Lungs: Clear to auscultation bilaterally. no rales or rhonchi Abdomen: Soft, nontender. Bowel sound are present. Extremities: No edema, no cyanosis, no clubbing. Neuro: Alert oriented Oriented x3. No focal sensory or motor deficit. Skin: No rashes or hyperpigmented spots Musculoskeletal system: No joint pain or swelling Hematological: No petechia or subcutanous hemorrhages. Immunological: No multiple septic spots on the skin Lymphatic: No generalized lymphadenopathy Psychiatry: Euthymic. Calm. - Constitutional Vitals: Vital Signs - 12hr 04/09/19 04/09/19 04/10/19 22:00 23:20 03:31 Temperature 98.0 F 98.0 F Pulse Rate 83 84 Respiratory 20 18 Rate Blood Pressure 141/85 121/76 O2 Sat by Pulse 97 Oximetry 04/10/19 08:10 Temperature 98.6 F Pulse Rate 79 Respiratory 17 Rate Blood Pressure 133/73 O2 Sat by Pulse 97 Oximetry - Labs CBC & Chem 7: 04/09/19 04:50 04/09/19 04:50 Labs: Abnormal lab results 04/09/19 04/10/19 Range/Units 11:35 08:18 POC Glucose 173 H 131 H (70-105)
[2019-04-10] MEDS: INSULIN LISPRO 100 UNIT/ML SUB-Q SCH ×3 (10:44→17:25)
[2019-04-10] MEDS: methIMAzole 5 MG TAB PO SCH (10:45)
[2019-04-10] MEDS: POTASSIUM CHLORIDE ER 10 MEQ TAB PO SCH (10:45)
[2019-04-10] MEDS: carvediloL 25 MG TAB PO SCH (10:45)
[2019-04-10] MEDS: FUROSEMIDE 40 MG TAB PO SCH (10:45)
[2019-04-10] MEDS: CHOLECALCIFEROL (VIT D3) 1000 UNIT TAB PO SCH (10:45)
[2019-04-10] MEDS: SPIRONOLACTONE 25 MG TAB PO SCH (10:46)
[2019-04-10] MEDS: metFORMIN 500 MG TAB PO SCH (10:52)
--- NOTE | 2019-04-10 15:57 | Discharge Summary ---
Providers - Providers Date of Admission: 04/08/19 00:33 Date of discharge: 04/10/19 Attending physician: ROXANE GARCIA 04/08/19 00:34 Consult to Physician [CONS] Routine Comment: Consulting Provider: THEO MYERS Physician Instructions: Reason For Exam: afib rvr on xarelto 04/08/19 00:37 Consult to Dietitian/Nutrition [CONS] Routine Physician Instructions: Reason For Exam: Reason for Consult: Diet education Primary care physician: DAIRY BAR MANAGER Hospitalization Reason for admission: Afib with RVR, Chest pain, dilated Cardiomyopathy Condition: Good Pertinent studies: EKG that showed Afib with RVR Repeat EKG after medical intervention showed NSR Procedures: none Hospital course: 58-year-old -[place] male with history of obesity, atrial fibrillation anticoagulated on Xarelto, dilated cardiomyopathy with EF 30-35%, hypertension h ypothyroidism, diabetes, prostate cancer and asthma presents to the [facility] ED with complaints of shortness of breath, palpitations and chest tightness x1 day. Pt states that he feels like is heart is racing. He also complains of chest tightness and shortness of breath with activity. His chest tightness and SOB improves with rest, but his heart continues to race. Pt was previously on met himazole. Was found to have hypothyroidism withvery elevated TSH in March 2018. He started gaining weight with worsening of his cardiomyopathy symptoms. His methimazole was held and was advised to follow up with his Robotic Technician. Repeat of this thyroid function in October 2018 was normal. He denies any recent hospitalizations, nausea, vomiting or diaphoresis. On admission pt was commenced on Amiodorone. Heart rate was controlled. Pt was transferred from the Unit to [facility]. Was continue with anticoagulation with Xeralto. Cardiology was following. Serial troponine level were normal. He is being discharged to follow up with PCP in 3-4 day, Cardiology in 7 days and Endocrinology in 10 days. He has the phone number to these specialist. Was recommenced on Methimazole 10 mg qd on discharge. Discussed d/c planning with pt who expressed understanding Disposition: DC-01 TO HOME OR SELFCARE Time spent for discharge: 40 mins - Discharge Diagnoses (1) Acute chest pain Status: Acute (2) Atrial fibrillation with rapid ventricular response Status: Acute (3) Hyperthyroidism Status: Acute (4) Hyperglycemia Status: Acute (5) Thyroiditis Status: Acute (6) Morbid obesity with BMI of 40.0-44.9, adult Status: Chronic (7) KIRAN (obstructive sleep apnea) Status: Chronic Core Measure Documentation - Palliative Care Palliative Care/ Comfort Measures: Not Applicable - Core Measures Any of the following diagnoses?: heart failure - Heart Failure Discharge Requirements EARL/ARB for LVSD if EF <40%: Yes Beta diann at discharge: Yes Exam - Physical Exam Narrative exam: Constitutional: Well-nourished well-developed. In no distress Head: Normocephalic atraumatic Eyes: Pupils are equal round and reactive to light Nose: No enlarged turbinates, no septal deviation. Mouth: Moist mucous membranes. Neck: Supple no thyromegaly. No bruit. No JVD Heart: Irregularly irregular. Lungs: Clear to auscultation bilaterally. no rales or rhonchi Abdomen: Soft, nontender. Bowel sound are present. Extremities: No edema, no cyanosis, no clubbing. Neuro: Alert oriented Oriented x3. No focal sensory or motor deficit. Skin: No rashes or hyperpigmented spots Musculoskeletal system: No joint pain or swelling Hematological: No petechia or subcutanous hemorrhages. Immunological: No multiple septic spots on the skin Lymphatic: No generalized lymphadenopathy Psychiatry: Euthymic. Calm. - Constitutional Vitals: Temp Pulse Resp BP Pulse Ox 98.6 F 79 18 133/73 97 04/10/19 08:10 04/10/19 10:46 04/10/19 10:00 04/10/19 10:46 04/10/19 10:00 Plan Activity: fall precautions Weight Bearing Status: Non-Weight Bearing Diet: low cholesterol, low salt, diabetic Follow up with: PRIMARY CARE, [Primary Care Provider] - 3-5 Days Prescriptions: Spironolactone [Aldactone] 25 mg PO DAILY #30 tablet metFORMIN [Glucophage] 1,000 mg PO QAMDIAB #60 tablet Furosemide [Lasix TAB] 40 mg PO QDAY #30 AtorvaSTATin [Lipitor] 20 mg PO DAILY #30 tablet Metoprolol [Lopressor TAB] 50 mg PO QDAY #60 Methimazole [Tapazole] 10 mg PO QDAY #30 Victoza 2-Brandon 1.2 mg SUB-Q DAILY #1 packet Cholecalciferol Vit D3 [Vitamin D3 1,000 UNIT TAB] 1,000 unit PO QDAY #30 Rivaroxaban [Xarelto] 20 mg PO QPM #30 tablet
[2019-04-10] MEDS: RIVAROXABAN 20 MG TAB PO SCH (17:25)
== END 2019-04-10 18:37 | disposition home or self-care (01) | DRG 392 ==
LOC: ED 21:51 → CC1 04-08 00:33 → 4A 04-08 14:05
PROVIDERS: ADMIT Internal Medicine; ATTEND Internal Medicine
PROC: 5A09357 Assistance with Respiratory Ventilation, Less than 24 Consecutive Hours, Continuous Positive Airway Pressure (ICD-10-PCS; principal; 2019-04-08)
DX: K21.9 Gastro-esophageal reflux disease without esophagitis (principal); Z68.42 Body mass index [BMI] 45.0-49.9, adult; I42.0 Dilated cardiomyopathy; I48.0 Paroxysmal atrial fibrillation; D64.9 Anemia, unspecified; E03.9 Hypothyroidism, unspecified; E66.01 Morbid (severe) obesity due to excess calories; I11.0 Hypertensive heart disease with heart failure; I50.9 Heart failure, unspecified; J45.909 Unspecified asthma, uncomplicated; Z60.2 Problems related to living alone; G47.33 Obstructive sleep apnea (adult) (pediatric); C61 Malignant neoplasm of prostate; E11.9 Type 2 diabetes mellitus without complications; Z79.84 Long term (current) use of oral hypoglycemic drugs; Z79.899 Other long term (current) drug therapy; Z71.3 Dietary counseling and surveillance
CPT/HCPCS: 36415; 71045; 80048; 82550; 82553; 82962; 83036; 83735; 84436; 84439; 84443; 84481; 84484; 85025; 85610; 85730; 93005; 93010; G0378; A9270-GY; J0282; J1815; J7060

== ENCOUNTER 2019-04-27 16:11 | Inpatient (IN) | payer OTHER ==
--- NOTE | 2019-04-27 17:08 | Emergency Department Report ---
Blank Doc - Documentation Documentation: 58-year-old male that presents with chest pain and SOB. Was sent by cardiolog ist for a-fib. This initial assessment/diagnostic orders/clinical plan/treatment(s) is/are subject to change based on patient's health status, clinical progression and re- assessment by fellow clinical providers in the ED. Further treatment and workup at subsequent clinical providers discretion. Patient/guardians urged not to elope from the ED as their condition may be serious if not clinically assessed and managed. Initial orders include: 1- Patient sent to MAIN ED for further evaluation and treatment 2- labs 3- EKG 4- cXR packer operator automatic notified to have patient brought back [facility].
--- NOTE | 2019-04-27 17:48 | XRay Report ---
CHEST 2 VIEWS INDICATION / CLINICAL INFORMATION: Chest Pain. COMPARISON: None available. FINDINGS: SUPPORT DEVICES: None. HEART / MEDIASTINUM: No significant abnormality. LUNGS / PLEURA: No significant pulmonary or pleural abnormality. No pneumothorax. ADDITIONAL FINDINGS: No significant additional findings. IMPRESSION: 1. No acute findings. Signer Name: Cristopher Galindo MD Signed: 04/27/2019 5:43 PM Workstation Name: [id number]
[2019-04-27 17:59] LABS: Basophils % (Auto) 0.5 % (0.0-1.8); Eosinophils # (Auto) 0.1 K/mm3 (0.0-0.4); Eosinophils % (Auto) 1.1 % (0.0-4.3); Hematocrit 31.3 % (35.5-45.6); Hemoglobin 10.3 gm/dl (11.8-15.2); Lymphocytes # (Auto) 3.1 K/mm3 (1.2-5.4); Lymphocytes % (Auto) 38.5 % (13.4-35.0); Mean Corpuscular HGB Conc 33 % (32-34); Monocytes # (Auto) 0.8 K/mm3 (0.0-0.8); Monocytes % (Auto) 9.9 % (0.0-7.3); Platelet Count 460 K/mm3 (140-440); Red Blood Count 4.68 M/mm3 (3.65-5.03); Red Cell Distribution Width 19.4 % (13.2-15.2)
[2019-04-27 18:03] LABS: Mean Corpuscular Volume 67 fl (84-94)
[2019-04-27 18:08] LABS: INR 1.74 (0.87-1.13)
[2019-04-27 18:09] LABS: Partial Thromboplastin Time 39.4 Sec. (24.2-36.6)
[2019-04-27 18:23] LABS: Alanine Aminotransferase 10 units/L (7-56); Albumin 3.5 g/dL (3.9-5); BUN/Creatinine Ratio 22; Blood Urea Nitrogen 24 mg/dL (9-20); Calcium 8.7 mg/dL (8.4-10.2); Hemolysis Index 3
[2019-04-27] MEDS ORDERED: dilTIAZem 25 MG/5 ML INJ IV ONE (19:00)
--- NOTE | 2019-04-27 19:03 | Emergency Department Report ---
ED Palpitations HPI - General Chief Complaint: Arrhythmia/Palpitations Stated Complaint: FIB Time Seen by Provider: 04/27/19 17:06 Source: patient Mode of arrival: Ambulatory Limitations: No Limitations - History of Present Illness Initial Comments: Patient is 58 years old male, morbidly obese, history of congestive heart failure, atrial fibrillation, hypertension, prostate cancer and diabetes. Patient presented to the ER from his gut carrier's office for management of atrial fibrillation with RVR. Patient stated the symptoms started this morning with irregular and rapid heartbeat associated with shortness of breath and chest pain. Patient describes his chest pain as central, pressure with no radiation. Patient denied any fever or chills. This and found to have atrial fibrillation with RVR with a rate of 147. Patient given cardiazem 10 mg IV bolus and started on Cardizem drip. MD Complaint: rapid heart beat, palpitations, irregular heart beat -: This morning Context: occured during rest Arrythmia History: atrial fibrillation - Related Data Home Medications Medication Instructions Recorded Confirmed Last Taken Lisinopril [Prinivil] 20 mg PO DAILY 09/24/17 04/27/19 08/28/18 Previous Rx's Medication Instructions Recorded Last Taken Type AtorvaSTATin [Lipitor] 20 mg PO DAILY #30 tablet 04/10/19 Unknown Rx Cholecalciferol Vit D3 [Vitamin D3 1,000 unit PO QDAY #30 04/10/19 Unknown Rx 1,000 UNIT TAB] Furosemide [Lasix TAB] 40 mg PO QDAY #30 04/10/19 Unknown Rx Metoprolol [Lopressor TAB] 50 mg PO QDAY #60 04/10/19 Unknown Rx Rivaroxaban [Xarelto] 20 mg PO QPM #30 tablet 04/10/19 Unknown Rx Spironolactone [Aldactone] 25 mg PO DAILY #30 tablet 04/10/19 Unknown Rx Victoza 2-Brandon 1.2 mg SUB-Q DAILY #1 packet 04/10/19 Unknown Rx metFORMIN [Glucophage] 1,000 mg PO QAMDIAB #60 tablet 04/10/19 Unknown Rx Allergies Allergy/AdvReac Type Severity Reaction Status Date / Time No Known Allergies Allergy Verified 09/11/13 10:09 ED Review of Systems ROS: Stated complaint: FIB Other details as noted in HPI Comment: All other systems reviewed and negative Constitutional: denies: chills, fever Respiratory: orthopnea, shortness of breath, SOB with exertion, SOB at rest. denies: cough, wheezing Cardiovascular: chest pain, palpitations Gastrointestinal: denies: abdominal pain, nausea, vomiting Musculoskeletal: denies: back pain Neurological: denies: headache, weakness, numbness, paresthesias, confusion, abnormal gait ED Past Medical Hx - Past Medical History Previous Medical History?: Yes Hx Hypertension: Yes Hx Congestive Heart Failure: Yes Hx Diabetes: Yes Hx Arthritis: Yes Hx Asthma: Yes Hx COPD: No Additional medical history: prostate CA, AFIB - Surgical History Past Surgical History?: Yes Additional Surgical History: gastric bypass, Colonoscopy - Social History Smoking Status: Never Smoker Substance Use Type: None - Medications Home Medications: Home Medications Medication Instructions Recorded Confirmed Last Taken Type Lisinopril [Prinivil] 20 mg PO DAILY 09/24/17 04/27/19 08/28/18 History AtorvaSTATin [Lipitor] 20 mg PO DAILY #30 tablet 04/10/19 04/27/19 Unknown Rx Cholecalciferol Vit D3 [Vitamin D3 1,000 unit PO QDAY #30 04/10/19 04/27/19 Unknown Rx 1,000 UNIT TAB] Furosemide [Lasix TAB] 40 mg PO QDAY #30 04/10/19 04/27/19 Unknown Rx Metoprolol [Lopressor TAB] 50 mg PO QDAY #60 04/10/19 04/27/19 Unknown Rx Rivaroxaban [Xarelto] 20 mg PO QPM #30 tablet 04/10/19 04/27/19 Unknown Rx Spironolactone [Aldactone] 25 mg PO DAILY #30 tablet 04/10/19 04/27/19 Unknown Rx Victoza 2-Brandon 1.2 mg SUB-Q DAILY #1 packet 04/10/19 04/27/19 Unknown Rx metFORMIN [Glucophage] 1,000 mg PO QAMDIAB #60 tablet 04/10/19 04/27/19 Unknown Rx ED Physical Exam - General Limitations: No Limitations General appearance: alert, in no apparent distress - Head Head exam: Present: atraumatic, normocephalic, normal inspection - Eye Eye exam: Present: normal appearance - ENT ENT exam: Present: normal exam, normal orophraynx, mucous membranes moist - Neck Neck exam: Present: normal inspection, full ROM. Absent: tenderness, meningismus, lymphadenopathy, thyromegaly - Respiratory Respiratory exam: Present: normal lung sounds bilaterally - Cardiovascular Cardiovascular Exam: Present: tachycardia, irregular rhythm - GI/Abdominal GI/Abdominal exam: Present: soft, normal bowel sounds. Absent: distended, tenderness, guarding, rebound, rigid, organomegaly, mass, bruit, pulsatile mass, hernia - Extremities Exam Extremities exam: Present: normal inspection, full ROM, normal capillary refill, pedal edema. Absent: calf tenderness - Back Exam Back exam: Present: normal inspection, full ROM. Absent: CVA tenderness (R), CVA tenderness (L), muscle spasm, paraspinal tenderness, vertebral tenderness - Neurological Exam Neurological exam: Present: alert, oriented X3, CN II-XII intact, normal gait, reflexes normal - Psychiatric Psychiatric exam: Present: normal mood - Skin Skin exam: Present: warm, intact, normal color ED Course Vital Signs 04/27/19 04/27/19 04/27/19 17:50 17:51 17:57 Temperature 98.6 F Pulse Rate 140 H 147 H Respiratory 20 24 22 Rate Blood Pressure 122/79 Blood Pressure [Left] O2 Sat by Pulse 98 98 Oximetry 04/27/19 04/27/19 04/27/19 18:04 18:15 18:31 Temperature Pulse Rate 137 H 139 H 145 H Respiratory 20 18 18 Rate Blood Pressure 113/67 130/79 Blood Pressure [Left] O2 Sat by Pulse 98 97 97 Oximetry 04/27/19 04/27/19 04/27/19 18:45 19:01 19:15 Temperature Pulse Rate 145 H 122 H 133 H Respiratory 20 20 24 Rate Blood Pressure 130/79 101/59 101/59 Blood Pressure [Left] O2 Sat by Pulse 96 96 98 Oximetry 04/27/19 04/27/19 04/27/19 19:31 19:45 20:01 Temperature Pulse Rate 129 H 113 H 133 H Respiratory 20 18 18 Rate Blood Pressure 92/39 70/53 80/44 Blood Pressure [Left] O2 Sat by Pulse 98 98 97 Oximetry 04/27/19 04/27/19 04/27/19 20:02 20:15 20:30 Temperature Pulse Rate 117 H 74 83 Respiratory 16 21 26 H Rate Blood Pressure 119/68 Blood Pressure 109/54 [Left] O2 Sat by Pulse 96 99 98 Oximetry 12/02/0504/27/19 04/27/19 20:45 21:00 21:15 Temperature Pulse Rate 99 H 133 H 74 Respiratory 34 H 19 19 Rate Blood Pressure 118/67 114/70 123/72 Blood Pressure [Left] O2 Sat by Pulse 100 99 99 Oximetry 04/27/19 23:07 Temperature Pulse Rate 65 Respiratory 16 Rate Blood Pressure Blood Pressure 128/65 [Left] O2 Sat by Pulse 98 Oximetry ED Medical Decision Making - Lab Data Result diagrams: 04/27/19 17:19 04/27/19 17:19 - EKG Data -: EKG Interpreted by Ga EKG shows normal: sinus rhythm Rate: tachycardia - EKG Data 04/27/19 21:50 Atrial fibrillation with RVR. - Medical Decision Making Patient is 58 years old male, morbidly obese, history of congestive heart failure, atrial fibrillation, hypertension, prostate cancer and diabetes. Patient presented to the ER from his gut carrier's office for management of atrial fibrillation with RVR. Patient stated the symptoms started this morning with irregular and rapid heartbeat associated with shortness of breath and chest pain. Patient describes his chest pain as central, pressure with no radiation. Patient denied any fever or chills. This and found to have atrial fibrillati on with RVR with a rate of 147. Patient given cardiazem 10 mg IV bolus and started on Cardizem drip. Labs reviewed and is unremarkable. Chest x-ray is negative for acute finding. Patient heart rate improved to less than 90. The patient with Dr. Dorman he agreed to admit the patient to medical service. Critical Care Time: Yes Critical care time in (mins) excluding proc time.: 30 Critical care attestation.: If time is entered above; I have spent that time in minutes in the direct care of this critically ill patient, excluding procedure time. ED Disposition Clinical Impression: Atrial fibrillation with rapid ventricular response, Morbid obesity with BMI of 40.0-44.9, adult, Acute chest pain Disposition: OP ADMIT IP TO THIS HOSP Is pt being admited?: Yes Condition: Stable Instructions: Chest Pain (ED) Referrals: RICK PENALOZA MD [Primary Care Provider] - 3-5 Days
[2019-04-27] MEDS ORDERED: SODIUM CHLORIDE 0.9% 1000 ML 1,000 ML IV ONE (19:44)
[2019-04-27] MEDS ORDERED: dilTIAZem/D5W 100 MG/100 ML BAG IV SCH (20:00)
[2019-04-27] MEDS ORDERED: MORPHINE 2 MG/1 ML INJ IV PRN (23:05)
[2019-04-27] MEDS ORDERED: DEXTROSE 50% IN WATER (25GM) 50 ML SYRINGE IV PRN (23:05)
[2019-04-27] MEDS ORDERED: ONDANSETRON 4 MG/2 ML INJ IV PRN (23:05)
[2019-04-27] MEDS ORDERED: MAGNESIUM HYDROXIDE (MOM) ORAL LIQD UDC PO PRN (23:05)
[2019-04-27] MEDS ORDERED: TEMAZEPAM 15 MG CAP PO ONE (23:15)
[2019-04-28] MEDS ORDERED: TEMAZEPAM 15 MG CAP PO ONE (00:24)
[2019-04-28] MEDS: INSULIN REGULAR, HUMAN 100 UNITS/1 ML SUB-Q SCH ×3 (00:52→12:00)
--- NOTE | 2019-04-28 04:24 | History and Physical Report ---
History of Present Illness Date of examination: 04/27/19 Date of admission: 04/27/19 21:52 Chief complaint: Palpitation or chest pain History of present illness: Patient is a 58-year-old male with known history of atrial fibrillation. He was seen in the cardiology clinic today and thereafter sent to the emergency room for further evaluation because of irregular heartbeat. Also complains of some chest pain which has since resolved. Upon arrival in the emergency room he was found to be in atrial fibrillation with RVR with a rate of about 150. Was given IV Cardizem and subsequently started on Cardizem drip. He denies any fever or chills, no nausea vomiting, no headache or dizziness. Past History Past Medical History: cancer (History of prostate cancer status post radiation therapy), diabetes, hypertension, other (Glaucoma, thyroid disorder) Past Surgical History: Other (Gastric bypass surgery) Social history: no significant social history Family history: other (Family history of heart disease) Medications and Allergies Allergies Allergy/AdvReac Type Severity Reaction Status Date / Time No Known Allergies Allergy Verified 09/11/13 10:09 Home Medications Medication Instructions Recorded Confirmed Last Taken Type Lisinopril [Prinivil] 20 mg PO DAILY 09/24/17 04/27/19 08/28/18 History AtorvaSTATin [Lipitor] 20 mg PO DAILY #30 tablet 04/10/19 04/27/19 Unknown Rx Cholecalciferol Vit D3 [Vitamin D3 1,000 unit PO QDAY #30 04/10/19 04/27/19 U nknown Rx 1,000 UNIT TAB] Furosemide [Lasix TAB] 40 mg PO QDAY #30 04/10/19 04/27/19 Unknown Rx Metoprolol [Lopressor TAB] 50 mg PO QDAY #60 04/10/19 04/27/19 Unknown Rx Rivaroxaban [Xarelto] 20 mg PO QPM #30 tablet 04/10/19 04/27/19 Unknown Rx Spironolactone [Aldactone] 25 mg PO DAILY #30 tablet 04/10/19 04/27/19 Unknown Rx Victoza 2-Brandon 1.2 mg SUB-Q DAILY #1 packet 04/10/19 04/27/19 Unknown Rx metFORMIN [Glucophage] 1,000 mg PO QAMDIAB #60 tablet 11/22/19 12/09/19 Unknown Rx Active Meds: Active Medications Dextrose (D50w (25gm) Syringe) 50 ml IV Q30MIN PRN; Protocol PRN Reason: Hypoglycemia Diltiazem HCl (Cardizem/D5w 100mg/100ml) 100 mg in 100 mls @ 5 mls/hr IV TITR ASHLEY; Protocol Last Titration: 04/27/19 20:35 Dose: 2.5 mg/hr, 2.5 mls/hr Documented by: Insulin Human Regular (Humulin R) 0 units SUB-Q Q6HR [facility]; Protocol Last Admin: 04/28/19 00:52 Dose: Not Given Documented by: Magnesium Hydroxide (Milk Of Magnesia) 30 ml PO Q4H PRN PRN Reason: Constipation Morphine Sulfate (Morphine) 2 mg IV Q4H PRN PRN Reason: Pain, Moderate (4-6) Ondansetron HCl (Zofran) 4 mg IV Q8H PRN PRN Reason: Nausea And Vomiting Sodium Chloride (Sodium Chloride Flush Syringe 10 Ml) 10 ml IV BID ASHLEY Sodium Chloride (Sodium Chloride Flush Syringe 10 Ml) 10 ml IV PRN PRN PRN Reason: LINE FLUSH Temazepam (Restoril) 15 mg PO QHS [facility] Review of Systems Cardiovascular: chest pain, palpitations Exam - Constitutional Vitals: Temp Pulse Resp BP Pulse Ox 98.6 F 65 16 128/65 98 04/27/19 17:51 04/27/19 23:07 04/27/19 23:07 04/27/19 23:07 04/27/19 23:07 General appearance: Present: no acute distress, obese - EENT Eyes: Present: PERRL, EOM intact ENT: hearing intact, clear oral mucosa, dentition normal - Neck Neck: Present: supple, normal ROM - Respiratory Respiratory effort: normal Respiratory: bilateral: CTA - Cardiovascular Rhythm: irregularly irregular Heart Sounds: Present: S1 & S2 - Extremities Extremities: no ischemia, No edema, Full ROM Peripheral Pulses: within normal limits - Abdominal General gastrointestinal: Present: soft, non-tender, non-distended, normal bowel sounds - Integumentary Integumentary: Present: clear, warm, dry - Musculoskeletal Musculoskeletal: strength equal bilaterally - Psychiatric Psychiatric: appropriate mood/affect, cooperative - Neurologic Neurologic: CNII-XII intact, moves all extremities Results - Labs CBC & Chem 7: 04/27/19 17:19 04/27/19 17:19 Labs: Abnormal lab results 04/27/19 04/27/19 04/27/19 Range/Units 17:19 17:19 17:19 Hgb 10.3 L (11.8-15.2) gm/dl Hct 31.3 L (35.5-45.6) % MCV 67 L (84-94) fl MCH 22 L (28-32) pg RDW 19.4 H (13.2-15.2) % Plt Count 460 H (140-440) K/mm3 Lymph % (Auto) 38.5 H (13.4-35.0) % Love % (Auto) 9.9 H (0.0-7.3) % PT 20.1 H (12.2-14.9) Sec. INR 1.74 H (0.87-1.13) APTT 39.4 H (24.2-36.6) Sec. BUN 24 H (9-20) mg/dL Glucose 115 H (75-100) mg/dL POC Glucose (70-105) Albumin 3.5 L (3.9-5) g/dL 04/28/19 Range/Units 00:56 Hgb (11.8-15.2) gm/dl Hct (35.5-45.6) % MCV (84-94) fl MCH (28-32) pg RDW (13.2-15.2) % Plt Count (140-440) K/mm3 Lymph % (Auto) (13.4-35.0) % Love % (Auto) (0.0-7.3) % PT (12.2-14.9) Sec. INR (0.87-1.13) APTT (24.2-36.6) Sec. BUN (9-20) mg/dL Glucose (75-100) mg/dL POC Glucose 107 H (70-105) Albumin (3.9-5) g/dL Assessment and Plan - Patient Problems (1) Atrial fibrillation with rapid ventricular response Current Visit: Yes Status: Acute Plan to address problem: Patient currently on Cardizem drip. Will titrate according to protocol. We will request cardiology evaluation and recommendation in a.m. (2) Acute chest pain Current Visit: Yes Status: Acute Plan to address problem: Chest pain is resolved. We will monitor on telemetry. (3) Morbid obesity with BMI of 40.0-44.9, adult Current Visit: Yes Status: Chronic Plan to address problem: Encouraged on diet. We also schedule for dietary consult. (4) Hyperthyroidism Current Visit: No Status: Acute Plan to address problem: We will continue current medication. Will monitor TSH, free T4 and T3. (5) DVT prophylaxis Current Visit: Yes Status: Acute Plan to address problem: We will place patient on subcutaneous heparin. (6) Full code status Current Visit: No Status: Acute
[2019-04-28 04:57] LABS: Basophils % (Auto) 0.7 % (0.0-1.8); Eosinophils # (Auto) 0.1 K/mm3 (0.0-0.4); Eosinophils % (Auto) 1.4 % (0.0-4.3); Hematocrit 29.8 % (35.5-45.6); Hemoglobin 9.8 gm/dl (11.8-15.2); Lymphocytes # (Auto) 2.7 K/mm3 (1.2-5.4); Lymphocytes % (Auto) 42.5 % (13.4-35.0); Mean Corpuscular HGB Conc 33 % (32-34); Monocytes # (Auto) 0.6 K/mm3 (0.0-0.8); Monocytes % (Auto) 9.8 % (0.0-7.3); Platelet Count 391 K/mm3 (140-440); Red Blood Count 4.45 M/mm3 (3.65-5.03); Red Cell Distribution Width 19.2 % (13.2-15.2)
[2019-04-28 05:07] LABS: INR 1.35 (0.87-1.13)
[2019-04-28 05:08] LABS: Partial Thromboplastin Time 33.4 Sec. (24.2-36.6)
[2019-04-28 05:17] LABS: BUN/Creatinine Ratio 22; Blood Urea Nitrogen 20 mg/dL (9-20); Calcium 8.7 mg/dL (8.4-10.2); Hemolysis Index 3; Mean Corpuscular Volume 67 fl (84-94)
[2019-04-28] MEDS ORDERED: HEPARIN 5,000 UNIT/1 ML VIAL SUB-Q SCH (06:00)
[2019-04-28] MEDS ORDERED: METOPROLOL SUCCINATE XL 50 MG TAB PO SCH (12:00)
--- NOTE | 2019-04-28 12:46 | Consultation ---
History of Present Illness Consult date: 04/28/19 Consult reason: atrial fibrillation History of present illness: This is a 58-year old male with patient with hyperthyroidism, chronic nonischemic cardiomyopathy, EF 30-35%, paroxysmal atrial fibrillation on chronic oral anticoagulation therapy with Xarelto. His regular veterinary surgery technologist is Dr. Navarrete at [facility]. Of note, the patient was recently treated at this hospital with atrial fibrillation secondary to hyperthyroidism. He reverted to sinus rhythm and discharged home with recommendations to follow up with an filtration supervisor. Patient returns with palpitations, admitted with rapid atrial fibrillation. He was treated with intravenous Diltiazem and has since reverted to sinus rhythm. Patient is currently sitting up in the bed side chair and appears comfortable. He denies chest pain, unusual shortness of breath and palpitations. TSH of 0.009 today. Patient reports he has followed up with an filtration supervisor as an outpatie nt and is now on medication for hyperthyroid management. Past History Past Medical History: cancer (History of prostate cancer status post radiation therapy), diabetes, hypertension, other (Glaucoma, thyroid disorder) Past Surgical History: Other (Gastric bypass surgery) Social history: no significant social history Family history: other (Family history of heart disease) Medications and Allergies Allergies Allergy/AdvReac Type Severity Reaction Status Date / Time No Known Allergies Allergy Verified 09/11/13 10:09 Home Medications Medication Instructions Recorded Confirmed Last Taken Type Lisinopril [Prinivil] 20 mg PO DAILY 09/24/17 04/27/19 08/28/18 History AtorvaSTATin [Lipitor] 20 mg PO DAILY #30 tablet 04/10/19 04/27/19 Unknown Rx Cholecalciferol Vit D3 [Vitamin D3 1,000 unit PO QDAY #30 04/10/19 04/27/19 Unknown Rx 1,000 UNIT TAB] Furosemide [Lasix TAB] 40 mg PO QDAY #30 04/10/19 04/27/19 Unknown Rx Metoprolol [Lopressor TAB] 50 mg PO QDAY #60 04/10/19 04/27/19 Unknown Rx Rivaroxaban [Xarelto] 20 mg PO QPM #30 tablet 04/10/19 04/27/19 Unknown Rx Spironolactone [Aldactone] 25 mg PO DAILY #30 tablet 04/10/19 04/27/19 Unknown Rx Victoza 2-Brandon 1.2 mg SUB-Q DAILY #1 packet 04/10/19 04/27/19 Unknown Rx metFORMIN [Glucophage] 1,000 mg PO QAMDIAB #60 tablet 04/10/19 04/27/19 Unknown Rx Active Meds: Active Medications Atorvastatin Calcium (Lipitor) 20 mg PO DAILY [facility] Cholecalciferol (Vitamin D3) 1,000 unit PO QDAY [facility] Dextrose (D50w (25gm) Syringe) 50 ml IV Q30MIN PRN; Protocol PRN Reason: Hypoglycemia Insulin Human Regular (Humulin R) 0 units SUB-Q Q6HR [facility]; Protocol Last Admin: 04/28/19 07:00 Dose: Not Given Documented by: Magnesium Hydroxide (Milk Of Magnesia) 30 ml PO Q4H PRN PRN Reason: Constipation Metformin HCl (Glucophage) 1,000 mg PO QAMDIAB [facility] Metoprolol Succinate (Metoprolol Xl) 100 mg PO QDAY [facility] Miscellaneous Medication (Victoza 2-Brandon) 1.2 mg SUB-Q DAILY [facility] Morphine Sulfate (Morphine) 2 mg IV Q4H PRN PRN Reason: Pain, Moderate (4-6) Ondansetron HCl (Zofran) 4 mg IV Q8H PRN PRN Reason: Nausea And Vomiting Rivaroxaban (Xarelto) 20 mg PO QHS [facility]; Protocol Sodium Chloride (Sodium Chloride Flush Syringe 10 Ml) 10 ml IV BID [facility] Sodium Chloride (Sodium Chloride Flush Syringe 10 Ml) 10 ml IV PRN PRN PRN Reason: LINE FLUSH Sotalol HCl (Betapace) 80 mg PO Q12HR [facility] Temazepam (Restoril) 15 mg PO QHS [facility] Physical Examination Vital Signs Pulse Resp Pulse Ox 140 H 20 98 04/27/19 17:50 04/27/19 17:50 04/27/19 17:50 General appearance: no acute distress HEENT: Positive: PERRL Neck: Positive: trachea midline Cardiac: Positive: Reg Rate and Rhythm Lungs: Positive: Decreased Breath Sounds Neuro: Positive: Grossly Intact Extremities: Absent: edema Results 04/28/19 04:40 04/28/19 04:40 Cardiac Enzymes 04/27/19 Range/Units 17:19 AST 13 (5-40) units/L Coagulation 04/27/19 04/28/19 Range/Units 17: 04:40 PT 20.1 H 16.5 H (12.2-14.9) Sec. INR 1.74 H 1.35 H (0.87-1.13) APTT 39.4 H 33.4 (24.2-36.6) Sec. CBC 04/27/19 04/28/19 Range/Units 17:19 04:40 WBC 8.0 6.2 (4.5-11.0) K/mm3 RBC 4.68 4.45 (3.65-5.03) M/mm3 Hgb 10.3 L 9.8 L (11.8-15.2) gm/dl Hct 31.3 L 29.8 L (35.5-45.6) % Plt Count 460 H 391 (140-440) K/mm3 Lymph # 3.1 2.7 (1.2-5.4) K/mm3 [place] # 0.8 0.6 (0.0-0.8) K/mm3 Eos # 0.1 0.1 (0.0-0.4) K/mm3 Baso # 0.0 0.0 (0.0-0.1) K/mm3 Comprehensive Metabolic Panel 04/27/19 04/28/19 Range/Units 17:19 04:40 Sodium 139 142 (137-145) mmol/L Potassium 4.6 4.5 (3.6-5.0) mmol/L Chloride 104.7 105.1 (98-107) mmol/L Carbon Dioxide 22 23 (22-30) mmol/L BUN 24 H 20 (9-20) mg/dL Creatinine 1.1 0.9 (0.8-1.5) mg/dL Glucose 115 H 91 (75-100) mg/dL Calcium 8.7 8.7 (8.4-10.2) mg/dL AST 13 (5-40) units/L ALT 10 (7-56) units/L Alkaline Phosphatase 72 (35-129) units/L Total Protein 7.7 (6.3-8.2) g/dL Albumin 3.5 L (3.9-5) g/dL Assessment and Plan Paroxysmal atrial fibrillation TSH less than 0.009 spontaneously reverted to sinus rhythm on Xarelto as an outpatient; [place] [facility] of Dilated NICMP EF 30-35% Hyperthyroidism Diabetes Hypertension Obesity KIRAN
--- NOTE | 2019-04-28 13:32 | Discharge Summary ---
Providers - Providers Date of Admission: 04/27/19 21:52 Date of discharge: 04/28/19 Attending physician: YAKELIN RECINOS 04/27/19 23:05 Consult to Dietitian/Nutrition [CONS] Routine Physician Instructions: Reason For Exam: Reason for Consult: Diet education 04/27/19 23:07 Consult to Physician [CONS] Routine Comment: Consulting Provider: THEO MYERS Physician Instructions: Reason For Exam: atrial fib Primary care physician: RICK PENALOZA Hospitalization Condition: Stable Hospital course: Patient is a 58-year-old male with known history of atrial fibrillation was seen in the cardiology clinic and thereafter sent to the emergency room for further evaluation because of irregular heartbeat and chest pain. Upon arrival in the emergency room he was found to be in atrial fibrillation with RVR with a rate of about 150. Was given IV Cardizem and subsequently started on Cardizem drip. He denies any fever or chills, no nausea vomiting, no headache or dizziness. Discharge diagnosis: Atrial fibrillation with rapid ventricular response, paroxysmal and converted to NSR Dilated cardiomyopathy, Ef 30-35% Acute chest pain, resolved, likely from GERD Morbid obesity with BMI of 40.0-44.9, adult Hyperthyroidism, on methimazole HTN, stable DM type 2 Disposition: DC-01 TO HOME OR SELFCARE Time spent for discharge: 34 minutes Core Measure Documentation - Palliative Care Palliative Care/ Comfort Measures: Not Applicable - Core Measures Any of the following diagnoses?: none Exam - Constitutional Vitals: Temp Pulse Resp BP Pulse Ox 98.5 F 78 16 142/97 99 04/28/19 03:53 04/28/19 07:21 04/28/19 07:21 04/28/19 07:21 04/28/19 07:21 General appearance: Present: no acute distress, obese - EENT Eyes: Present: PERRL ENT: hearing intact, clear oral mucosa - Neck Neck: Present: supple, normal ROM - Respiratory Respiratory effort: normal Respiratory: bilateral: CTA - Cardiovascular Heart Sounds: Present: S1 & S2. Absent: rub, click - Extremities Extremities: pulses symmetrical, No edema Peripheral Pulses: within normal limits - Abdominal General gastrointestinal: Present: soft, non-tender, non-distended, normal bowel sounds - Integumentary Integumentary: Present: clear, warm, dry - Musculoskeletal Musculoskeletal: gait normal, strength equal bilaterally - Psychiatric Psychiatric: appropriate mood/affect, intact judgment & insight - Neurologic Neurologic: CNII-XII intact, moves all extremities Plan Activity: advance as tolerated Weight Bearing Status: Weight Bear as Tolerated Diet: low fat, low salt, diabetic Additional Instructions: f/u with shipping manager in one week Follow up with: RICK PENALOZA MD [Primary Care Provider] - 3-5 Days Prescriptions: sotaloL [Betapace] 80 mg PO Q12HR #60 tablet dilTIAZem [Cardizem] 60 mg PO Q6HR #120 tablet Methimazole [Tapazole] 10 mg PO Q8H #30 tablet
[2019-04-28 15:19] VITALS: BP 156/91
[2019-04-28] MEDS ORDERED: dilTIAZem 60 MG TAB PO SCH (18:00)
[2019-04-28] MEDS ORDERED: TEMAZEPAM 15 MG CAP PO SCH (22:00)
[2019-04-28] MEDS ORDERED: RIVAROXABAN 10 MG TAB PO SCH (22:00)
[2019-04-29] MEDS ORDERED: metFORMIN 500 MG TAB PO SCH (08:00)
[2019-04-29] MEDS ORDERED: PAK SUB-Q SCH (10:00)
[2019-04-29] MEDS ORDERED: CHOLECALCIFEROL (VIT D3) 1000 UNIT TAB PO SCH (10:00)
[2019-04-29] MEDS ORDERED: VICTOZA SUB-Q SCH (10:00)
[2019-04-29] MEDS ORDERED: METOPROLOL SUCCINATE XL 100 MG TAB PO SCH (10:00)
== END 2019-04-28 15:26 | disposition home or self-care (01) | DRG 392 ==
LOC: ED 16:11 → CC1 21:52
PROVIDERS: ADMIT Internal Medicine Geriatric Medicine; ATTEND Internal Medicine
DX: K21.9 Gastro-esophageal reflux disease without esophagitis (principal); Z68.42 Body mass index [BMI] 45.0-49.9, adult; I42.0 Dilated cardiomyopathy; I48.0 Paroxysmal atrial fibrillation; E66.01 Morbid (severe) obesity due to excess calories; E05.90 Thyrotoxicosis, unspecified without thyrotoxic crisis or storm; E11.9 Type 2 diabetes mellitus without complications; G47.33 Obstructive sleep apnea (adult) (pediatric); I11.0 Hypertensive heart disease with heart failure; I50.9 Heart failure, unspecified; M19.90 Unspecified osteoarthritis, unspecified site; J45.909 Unspecified asthma, uncomplicated; Z71.3 Dietary counseling and surveillance; Z79.01 Long term (current) use of anticoagulants; Z85.46 Personal history of malignant neoplasm of prostate; Z79.899 Other long term (current) drug therapy; Z98.84 Bariatric surgery status
CPT/HCPCS: 36415; 71046; 80048; 80053; 82962; 84439; 84443; 84481; 84484; 85025; 85610; 85730; 93005; 93010; 96361; 96365; 96375; G0378; J1644; J7030